=== PATIENT | female | born 1950 | race Caucasian/White ===

== ENCOUNTER 2022-11-11 09:49 | Outpatient (OUT) | payer MEDICARE, SELFPAY ==
[2022-11-11 10:24] LABS: Basophils Percent Auto 0.5 % (0.2-2.0); Eosinophils Absolute Auto 0.1 10^3/uL (0.0-0.7); Eosinophils Percent Auto 1.8 % (0.9-7.0); Hematocrit 40.7 % (36.0-48.0); Immature Granulocytes Abs Auto 0.05 10^3/uL (0.00-0.03); Immature Granulocytes Pct Auto 0.6 % (0.0-0.5); Lymphocytes Absolute Auto 2.3 10^3/uL (1.2-3.8); Lymphocytes Percent Auto 29.5 % (20.5-60.0); Mean Corpuscular HGB Conc 31.9 g/dL (29.9-35.2); Mean Corpuscular Hemoglobin 29.4 pg (26.7-34.0); Mean Corpuscular Volume 92.1 fL (81.0-99.0); Mean Platelet Volume 10.4 fL (9.5-13.5); Monocytes Percent Auto 12.5 % (1.7-12.0); Neutrophils Absolute Auto 4.3 10^3/uL (1.4-6.5); Neutrophils Percent Auto 55.1 % (43.0-75.0); Platelet Count 223 10^3/uL (150-450); Red Blood Count 4.42 10^6/uL (4.20-5.40); Red Cell Distribution Width 13.5 % (11.0-15.0); White Blood Count 7.8 10^3/uL (4.0-11.0)
[2022-11-11 11:49] LABS: Estimated Average Glucose 114 mg/dL; Glycohemoglobin A1C 5.6 % (4.5-6.2)
[2022-11-11 13:51] LABS: Free T4 1.02 ng/dL (0.76-1.46)
[2022-11-11 15:50] LABS: Alanine Aminotransferase 100 U/L (14-59); Albumin Globulin Ratio 0.6; Albumin Level 3.4 g/dL (3.4-5.0); Alkaline Phosphatase 85 U/L (46-116); Aspartate Amino Transferase 62 U/L (15-37); BUN Creatinine Ratio 19.5; Bilirubin Direct 0.1 mg/dL (0.0-0.2); Bilirubin Total 0.4 mg/dL (0.2-1.0); Carbon Dioxide 27.8 mmol/L (21.0-32.0); Chloride 104 mmol/L (98-107); Chol HDL Ratio 3.1; Cholesterol 195 mg/dL (<=200); Estimated GFR (African America >60 (>=60); Estimated GFR (Non-African Ame >60 (>=60); Free T3 2.61 pg/mL (2.18-3.98); Globulin 6.1 g/dL; Glucose 96 mg/dL (74-106); HDL Cholesterol 63 mg/dL (40-60); Potassium 3.8 mmol/L (3.5-5.1); Sodium 139 mmol/L (136-145); Thyroid Stimulating Hormone 1.633 uIU/mL (0.358-3.740); Total Protein 9.5 g/dL (6.4-8.2); Triglycerides 77 mg/dL (<=150); VLDL CHOLESTEROL 15.4 mg/dL
[2022-11-11 16:09] LABS: LDL Cholesterol Calculated 116.6 mg/dL
== END 2022-11-11 09:50 | disposition home or self-care (01) ==
LOC: LAB 09:52
PROVIDERS: PCP Family Medicine; Visit Provider Family Medicine
DX: E78.5 Hyperlipidemia, unspecified (principal); I10 Essential (primary) hypertension; E03.9 Hypothyroidism, unspecified; R73.03 Prediabetes; Z51.81 Encounter for therapeutic drug level monitoring
CPT/HCPCS: 36415; 80048; 80061; 80076; 83036; 84439; 84443; 84481; 85025

== ENCOUNTER 2022-11-14 10:48 | Outpatient (OUT) | payer MEDICARE, SELFPAY ==
[2022-11-15 08:12] LABS: HBsAg Screen Negative (Negative); HCV Ab Non Reactive (Non Reactive); Hep A Ab, IgM Negative (Negative); Hep B Core Ab, IgM Negative (Negative)
== END 2022-11-14 10:49 | disposition home or self-care (01) ==
LOC: LAB 10:51
PROVIDERS: PCP Family Medicine; Visit Provider Family Medicine
DX: R74.8 Abnormal levels of other serum enzymes (principal); R79.89 Other specified abnormal findings of blood chemistry
CPT/HCPCS: 36415; 80074

== ENCOUNTER 2022-11-17 10:28 | Outpatient (OUT) | payer MEDICARE, SELFPAY ==
--- NOTE | 2022-11-17 10:32 | US_ITS ---
The [address] [address] Patient Name: RADHA SUTHERLAND MRN: [id number] date: 1950 Sex: F Assigned Patient Location: [place] Current Patient Location: [place] Accession/Order Number: [id number] Exam Date: 11/17/2022 10:33 Report Date: 11/17/2022 11:30 At the request of: FRITZ GARCIA Procedure: US right upper quadrant EXAM: US right upper quadrant HISTORY: . Abnormal Liver Function Test . COMPARISON: None. TECHNIQUE: Grayscale and color imaging was performed FINDINGS: The pancreas was obscured due to overlying bowel gas. Scanning of the liver demonstrates mild increased echogenicity of liver consistent with fatty infiltration of the liver. Color-flow is noted in the portal and hepatic veins. Scanning of the gallbladder demonstrates multiple small echogenic foci layering within the gallbladder consistent with small gallstones. Sludge is also noted within the gallbladder. No pain upon scanning over the gallbladder. Gallbladder wall measured 3.7 mm. Common bile duct measures 3.5 mm. No fluid was noted in the right upper quadrant. Right kidney measures 10.7 x 5.8 x 7.5 cm. Color-flow is noted. No solid renal cortical masses or hydronephrosis is noted. US/US right upper quadrant Impression: 1. Cholelithiasis along with sludge within the gallbladder. Gallbladder wall measures 3.7 mm. Patient had no pain upon scanning over the gallbladder. 2. Increased echogenicity of liver consistent with fatty infiltration of liver. 3. The pancreas was obscured due to overlying bowel gas. Electronically authenticated by: STACY FISCHER Date: 11/17/2022 11:30
== END 2022-11-17 10:29 | disposition home or self-care (01) ==
LOC: US 10:28
PROVIDERS: PCP Family Medicine; Visit Provider Family Medicine
DX: R79.89 Other specified abnormal findings of blood chemistry (principal); K80.20 Calculus of gallbladder without cholecystitis without obstruction
CPT/HCPCS: 76705

== ENCOUNTER 2023-08-05 08:23 | Outpatient (OUT) | payer MEDICARE, SELFPAY ==
--- NOTE | 2023-08-05 08:26 | MM_ITS ---
Patient Name: RADHA SUTHERLAND MR#: [id number] : 1950 Exam Date: 08/05/2023 Ordering Doctor: DR Cruz Thornton . RADIOLOGY REPORT PROCEDURE: MM TOMOSYNTHESIS SCREENING BI COMPARISON: MG MAMM SCREEN LEONARDO W CAD, 11/09/2019. MG MAMM LEONARDO SCRN W CAD DIG, 07/12/2014. MG MAMM LEONARDO SCRN W CAD DIG, 12/30/2012. INDICATIONS: Screening Calculator Name NCI Breast Cancer Risk Assessment Tool 5 Year Breast Cancer Risk 1.60% Lifetime Breast Cancer Risk 4.10% Personal Breast Cancer No Personal Ovarian Cancer No Treatments Excision Family Cancers None LOCATION: The [facility] BREAST COMPOSITION: The breasts are almost entirely fatty. FINDINGS: DIAGNOSTIC CATEGORY 1--NEGATIVE. RIGHT BREAST: No significant suspicious finding. No significant change has occurred. LEFT BREAST: No significant suspicious finding. No significant change has occurred. RECOMMENDATIONS: ROUTINE MAMMOGRAM AND CLINICAL EVALUATION IN 12 MONTHS. PLEASE NOTE: A NORMAL MAMMOGRAM DOES NOT EXCLUDE THE POSSIBILITY OF BREAST CANCER. A CLINICALLY SUSPICIOUS PALPABLE LUMP SHOULD BE BIOPSIED. Dictated by: Bony Garvin M.D. on 08/06/2023 at 09:06 Approved by: Bony Garvin M.D. on 08/06/2023 at 09:09
== END 2023-08-05 08:24 | disposition home or self-care (01) ==
LOC: MAMMO 08:23
PROVIDERS: PCP Family Medicine; Visit Provider Family Medicine
DX: Z12.31 Encounter for screening mammogram for malignant neoplasm of breast (principal)
CPT/HCPCS: 77063; 77067

== ENCOUNTER 2023-12-29 10:42 | Outpatient (OUT) | payer MEDICARE, SELFPAY ==
--- OUTSIDE RECORDS SUMMARY | 2023-12-29 11:02 | XMS_ITS | CCD ---
Author Organization [facility] Inform ion Partnership [facility] Care Team Providers Care Operations Mgr Name Role Phone DR CRUZ GARCIA Attending Unavailable RADHA, DR CRUZ Torres Admitting Unavailable RADHA, DR CRUZ Torres Primary Care Unavailable RADHA, DR CRUZ Torres Consulting Unavailable MOLLY MOORE Admitting Unavailable MOLLY MOORE Attending Unavailable RADHA, DR CRUZ Torres Primary Care Unavailable Mi Littlejohn Unavailable Cruz Garcia MD Primary Care Provider Cruz Garcia MD Unavailable CRUZ GARCIA Attending Unavailable RADHA, CRUZ Attending Unavailable DAWOOD FINN Attending Unavailable CRUZ GARCIA Referring Unavailable CRUZ GARCIA Attending Unavailable RADHA, CRUZ Attending Unavailable Medications Current Medications Medication Drug Class(es) Dates Sig (Normalized) Sig (Original) cyclobenzaprine hydrochloride 10 mg oral tablet (3 sources) Muscle Relaxant End: 12-25-2023 take 1 tablet by mouth three times daily as needed for muscle spasms cyclobenzaprine (Flexeril) 10 MG tablet Take 1 tablet by mouth 3 (three) times a day as needed for muscle spasms. 12/25/2023 Discontinued hydroCHLOROthiazide 25 mg / lisinopril 20 mg oral tablet (4 sources) Thiazide Diuretic, Angiotensin Converting Enzyme Inhibitor Start: 07-02-2023 End: 07-01-2024 take 2 tablets by mouth once daily lisinopril-hydroCHL OROthiazide 20-25 MG tablet Indications: Benign essential hypertension (CMS/HCC) Take 2 tablets by mouth Daily 60 tablet 11 07/02/2023 07/01/2024 Active Lisinopril-hydro CHLOROthiazide 20-25 MG 1 tablet Orally Active levothyroxine sodium 0.05 mg oral tablet (4 sources) l-Thyroxine Start: 10-14-2023 take 1 tablet by mouth in the morning levothyroxine (Synthroid, Levoxyl) 50 MCG tablet Indications: Primary hypothyroidism (CMS/HCC) Take 1 tablet (50 mcg) by mouth in the morning. Take on an empty stomach.. 30 tablet 2 10/14/2023 Active Levothyroxine So dium 25 MCG (Prior Auth: Rx Ref#:[id number]) Oral for 90 Days Active nystatin 790604 unt/ml oral suspension (1 source) Polyene Antifungal Start: 01-28-2023 take 5 mL by mouth three times daily Nystatin [id number] UNIT/ML 5 ml Mouth/Throat 3 times a day for 10 days Swish and swallow Jan, Active Completed/Discontinued Medications Medication Drug Class(es) Dates Sig (Normalized) Sig (Original) dextromethorphan hydrobromide 1.5 mg/ml / pyrilamine maleate 1.5 mg/ml oral solution (1 source) Uncompetitive T-apoqji-F-aspartate Receptor Antagonist, Sigma-1 Agonist Start: 02-14-2018 [place] DM 7.5-7.5 MG/5ML 20 ml Orally every 6 to 8 hours prn cough for 3 days Jan, Not-Taking/PRN Ketorolac (1 source) Nonsteroidal Anti-inflammatory Drug, Cyclooxygenase Inhibitor Start: 07-01-2015 Toradol per 15 mg June, 60 mg triamcinolone acetonide 0.055 mg/actuat metered dose nasal spray (1 source) Corticosteroid Start: 02-14-2018 take 2 puff(s) nasal route once daily as needed Nasacort Allergy 24HR 55 MCG/ACT 2 puffs each nostril Nasally Once a day for 10 days Jan, Not-Taking/PRN Problems Active Problems Problem Classification Problem Date Documented Date Episodic/Chronic Diabetes mellitus without complication (5 sources) Prediabetes; Translations: [Prediabetes] Onset: 01-19-2023 12-25-2023 Episodic Disorders of lipid metabolism (6 sources) Hyperlipidemia, unspecified; Translations: [Dyslipidemia] Onset: 11-02-2021 12-25-2023 Chronic Essential hypertension (9 sources) Essential (primary) hypertension; Translations: [Benign essential hypertension] Onset: 10-28-2021 Chronic Mycoses (1 source) Candidal stomatitis Episodic Other aftercare (1 source) Other intermediate (current) drug therapy; Translations: [OTH PRIMARY EDUCATION PROFESSOR CURRENT DRUG THERAPY] Onset: 11-02-2021 Episodic Other aftercare (4 sources) Long-term current use of drug therapy; Translations: [Other automatic dry starch operator (current) drug therapy] Onset: 12-25-2023 12-25-2023 Episodic Other liver diseases (3 sources) Non-alcoholic fatty liver; Translations: [Fatty (change of) liver, not elsewhere classified] Onset: 01-19-2023 01-19-2023 Chronic Other nutritional; endocrine; and metabolic disorders (1 source) Obesity, unspecified; Translations: [OBESITY UNSPECIFIED] Onset: 11-02-2021 Chronic Other nutritional; endocrine; and metabolic disorders (4 sources) Obesity caused by energy imbalance; Translations: [Class 1 obesity due to excess calories with serious comorbidity and body mass index (BMI) of 30.0 to 30.9 in adult] Onset: 01-19-2023 12-25-2023 Chronic Other nutritional; endocrine; and metabolic disorders (1 source) Body mass index 30+ - obesity; Translations: [Obesity, unspecified] Onset: 01-19-2023 01-19-2023 Chronic Other screening for suspected conditions (not mental disorders or infectious disease) (2 sources) Patient encounter status; Translations: [Encounter for screening for malignant neoplasm of colon] 12-25-2023 Episodic Other upper respiratory disease (1 source) Nasal congestion Episodic Spondylosis; intervertebral disc disorders; other back problems (3 sources) Degeneration of lumbar intervertebral disc; Translations: [DDD (degenerative disc disease), lumbar] Onset: 01-16-2023 01-16-2023 Chronic Thyroid disorders (6 sources) Hypothyroidism, unspecified; Translations: [Unspecified acquired hypothyroidism] Onset: 11-02-2021 12-25-2023 Chronic Past or Other Problems Problem Classification Problem Date Documented Date Episodic/Chronic Biliary tract disease (3 sources) Biliary calculus; Translations: [Calculus of gallbladder without cholecystitis without obstruction] Onset: 01-19-2023 01-19-2023 Episodic Mood disorders (2 sources) Mood disorders Onset: 12-25-2023 12-25-2023 Results Test Name Value Interpretation Reference Range Facil ity CBC AUTO DIFFon 10-28-2021 BASO # 0.1 103/ul Normal 0.0-0.1 [facility] Comment on above: Performed By: #### C BC #### [facility] [address] [place] [address] Dr. Fanta Barrera Basophils/100 WBC (Bld) 0.8 % Normal 0.2-2.0 [facility] Comment on above: Performed By: #### C BC #### [facility] [address] [place] [address] Dr. Fanta Barrera EO # 0.1 103/ul Normal 0.0-0.7 [facility] Comment on above: Performed By: #### C BC #### [facility] [address] [place] [address] Dr. Fanta Barrera Eosinophils/100 WBC (Bld) 1.5 % Normal 0.9-7.0 [facility] Comment on above: Performed By: #### C BC #### [facility] [address] [place] [address] Dr. Fanta Barrera Erythrocyte distribution width (RBC) [Ratio] 13.2 % Normal 11.0-15.0 [facility] Comment on above: Performed By: #### C BC #### [facility] [address] [place] [address] Dr. Fanta Barrera Hematocrit (Bld) [Volume fraction] 40.1 % Normal 36.0-48.0 [facility] Comment on above: Performed By: #### C BC #### [facility] [address] [place] [address] Dr. Fanta Barrera Hemoglobin (Bld) [Mass/Vol] 12.8 g/dL Normal 12.0-16.0 [facility] Comment on above: Performed By: #### C BC #### [facility] [address] [place] [address] Dr. Fanta Barrera IG # 0.03 10e3/ul Normal 0.00-0.03 [facility] Comment on above: Performed By: #### C BC #### [facility] [address] [place] [address] Dr. Fanta Barrera IG % 0.5 % Normal 0.0-0.5 [facility] Comment on above: Performed By: #### C BC #### [facility] [address] [place] [address] Dr. Fanta Barrera LYMPH # 1.7 103/ul Normal 1.2-3.8 [facility] Comment on above: Performed By: #### C BC #### [facility] [address] [place] [address] Dr. Fanta Barrera Lymphocytes/100 WBC (Bld) 26.1 % Normal 20.5-60.0 [facility] Comment on above: Performed By: #### C BC #### [facility] [address] [place] [address] Dr. Fanta Barrera MANUAL DIFF REQ NO Normal [facility] Comment on above: Performed By: #### C BC #### [facility] [address] [place] [address] Dr. Fanta Barrera MCH (RBC) [Entitic mass] 29.3 pg Normal 26.7-34.0 [facility] Comment on above: Performed By: #### C BC #### [facility] [address] [place] [address] Dr. Fanta Barrera MCHC (RBC) [Mass/Vol] 31.9 g/dL Normal 29.9-35.2 [facility] Comment on above: Performed By: #### C BC #### [facility] [address] [place] [address] Dr. Fanta Barrera MCV (RBC) [Entitic vol] 91.8 fL Normal 81.0-99.0 [facility] Comment on above: Performed By: #### C BC #### [facility] [address] [place] [address] Dr. Fanta Barrera MONO # 0.8 103/ul Normal 0.3-0.8 [facility] Comment on above: Performed By: #### C BC #### [facility] [address] [place] [address] Dr. Fanta Barrera Monocytes/100 WBC (Bld) 12.5 % Critically high 1.7-12.0 [facility] Comment on above: Performed By: #### C BC #### [facility] [address] [place] [address] Dr. Fanta Barrera NEUT # 3.8 103/ul Normal 1.4-6.5 [facility] Comment on above: Performed By: #### C BC #### [facility] [address] [place] [address] Dr. Fanta Barrera Neutrophils/100 WBC (Bld) 58.6 % Normal 43.0-75.0 [facility] Comment on above: Performed By: #### C BC #### [facility] [address] [place] [address] Dr. Fanta Barrera Platelet mean volume (Bld) [Entitic vol] 11.3 fL Normal 9.5-13.5 [facility] Comment on above: Performed By: #### C BC #### [facility] [address] [place] [address] Dr. Fanta Barrera PLT 240 103/ul Normal 150-450 [facility] Comment on above: Performed By: #### C BC #### [facility] [address] [place] [address] Dr. Fanta Barrera RBC 4.37 106/ul Normal 4.20-5.40 [facility] Comment on above: Performed By: #### C BC #### [facility] [address] [place] [address] Dr. Fanta Barrera WBC 6.6 103/ul Normal 4.0-11.0 [facility] Comment on above: Performed By: #### C BC #### [facility] [address] [place] [address] Dr. Fanta Barrera FREE T3on 10-28-2021 FREE T3 2.45 pg/mlL Normal 2.18-3.98 [facility] Comment on above: Performed By: #### F T3, BMP, LIVER, TSH, LIPID #### [facility] [address] [place] [address] Dr. Fanta Barrera FREE T4on 10-28-2021 Free T4 [Mass/Vol] 1.05 ng/dL Normal 0.76-1.46 [facility] Comment on above: Performed By: #### F T4 #### [facility] [address] [address] [address] Fanta Barrera GLYCOHEMOGLOBIN A1Con 2021 ADA RECOMMENDATION SEE BELOW Normal [facility] Comment on above: Result Comment: ADA RECOMMENDED LIMIT 4.0 - 6.0 ADA THERAPEUTIC TARGET < 7.0 ACTION SUGGESTED > 7.0 Performed By: #### A 1C #### [facility] [address] [address] [address] Fanta Barrera Glucose [Mass/Vol] 123 mg/dL Normal [facility] Comment on above: Performed By: #### A 1C #### [facility] [address] [address] [address] Fanta Barrera HbA1c (Bld) [Mass fraction] 5.9 % Normal 4.5-6.2 [facility] Comment on above: Performed By: #### A 1C #### [facility] [address] [address] [address] Fanta Barrera LIPID PROFILEon 10-28-2021 CHOL-HDL RATIO NORM SEE BELOW Normal [facility] Comment on above: Result Comment: 3.3 - 4.4 LOW RISK 4.4 - 7.1 AVERAGE RISK 7.1 - 11.0 MODERATE RISK >11.0 HIGH RISK Performed By: #### F T3, BMP, LIVER, TSH, LIPID #### [facility] [address] [address] [address] Fanta Barrera Cholesterol [Mass/Vol] 180 mg/dL Normal <=200 [facility] Comment on above: Performed By: #### F T3, BMP, LIVER, TSH, LIPID #### [facility] [address] [address] [address] Fanta Barrera Cholesterol in HDL [Mass/Vol] 58 mg/dL Normal 40-60 [facility] Comment on above: Performed By: #### F T3, BMP, LIVER, TSH, LIPID #### [facility] [address] [address] [address] Fanta Barrera Cholesterol in LDL [Mass/Vol] 106.6 mg/dL Normal [facility] Comment on above: Performed By: #### F T3, BMP, LIVER, TSH, LIPID #### [facility] [address] [address] [address] Fanta Barrera Cholesterol.total/Cho lesterol in HDL [Mass ratio] 3.1 {ratio} Normal [facility] Comment on above: Performed By: #### F T3, BMP, LIVER, TSH, LIPID #### [facility] [address] [address] [address] Fanta Barrera HDL NORMAL > or = 60 mg/dl - LOW CARDIOVASCULAR RISK <40 mg/dl - HIGH CARDIOVASCULAR RISK Normal [facility] Comment on above: Performed By: #### F T3, BMP, LIVER, TSH, LIPID #### [facility] [address] [address] [address] Fanta Barrera LDL CALC NORMAL SEE BELOW Normal [facility] Comment on above: Result Comment: <100 mg/dl OPTIMAL 100 - 129 mg/dl NEAR OR ABOVE OPTIMAL 130 - 159 mg/dl BORDERLINE HIGH 160 - 189 mg/dl HIGH >190 mg/dl VERY HIGH Performed By: #### F T3, BMP, LIVER, TSH, LIPID #### [facility] [address] [address] [address] Fanta Barrera Triglyceride [Mass/Vol] 77 mg/dL Normal <=150 [facility] Comment on above: Performed By: #### F T3, BMP, LIVER, TSH, LIPID #### [facility] [address] [address] [address] Fanta Barrera VLDL CALC 15.4 mg/dL Normal [facility] Comment on above: Performed By: #### F T3, BMP, LIVER, TSH, LIPID #### [facility] [address] [address] [address] Fanta Barrera LIVER PROFILEon 10-28-2021 Albumin [Mass/Vol] 3.7 g/dL Normal 3.4-5.0 [facility] Comment on above: Performed By: #### F T3, BMP, LIVER, TSH, LIPID #### [facility] [address] [address] [address] Fanta Barrera Albumin/Globulin [Mass ratio] 0.7 {ratio} Normal [facility] Comment on above: Performed By: #### F T3, BMP, LIVER, TSH, LIPID #### [facility] [address] [address] [address] Fanta Barrera ALP [Catalytic activity/Vol] 79 U/L Normal 46-116 [facility] Comment on above: Performed By: #### F T3, BMP, LIVER, TSH, LIPID #### [facility] [address] [address] [address] Fanta Barrera ALT [Catalytic activity/Vol] 74 U/L Critically high 14-59 [facility] Comment on above: Performed By: #### F T3, BMP, LIVER, TSH, LIPID #### [facility] [address] [place] [address] Dr. Fanta Barrera AST [Catalytic activity/Vol] 45 U/L Critically high 15-37 The [facility] Comment on above: Performed By: #### F T3, BMP, LIVER, TSH, LIPID #### [facility] [address] [place] [address] Dr. Fanta Barrera BILI, CONJUGATED 0.1 mg/dL Normal 0.0-0.2 [facility] Comment on above: Performed By: #### F T3, BMP, LIVER, TSH, LIPID #### [facility] [address] [place] [address] Dr. Fanta Barrera Bilirubin [Mass/Vol] 0.5 mg/dL Normal 0.2-1.0 [facility] Comment on above: Performed By: #### F T3, BMP, LIVER, TSH, LIPID #### [facility] [address] [place] [address] Dr. Fanta Barrera Globulin (S) [Mass/Vol] 5.3 g/dL Normal [facility] Comment on above: Performed By: #### F T3, BMP, LIVER, TSH, LIPID #### [facility] [address] [place] [address] Dr. Fanta Barrera Protein [Mass/Vol] 9.0 g/dL Critically high 6.4-8.2 [facility] Comment on above: Performed By: #### F T3, BMP, LIVER, TSH, LIPID #### [facility] [address] [place] [address] Dr. Fanta Barrera PROF CHEM 8 (BAS METB)on Anion gap [Moles/Vol] 10.0 mmol/L Normal [facility] Comment on above: Performed By: #### F T3, BMP, LIVER, TSH, LIPID #### [facility] [address] [place] [address] Dr. Fanta Barrera Calcium [Mass/Vol] 9.4 mg/dL Normal 8.5-10.1 [facility] Comment on above: Performed By: #### F T3, BMP, LIVER, TSH, LIPID #### [facility] [address] [place] [address] Dr. Fanta Barrera Chloride [Moles/Vol] 104 mmol/L Normal 98-107 [facility] Comment on above: Performed By: #### F T3, BMP, LIVER, TSH, LIPID #### [facility] [address] [place] [address] Dr. Fanta Barrera CO2 [Moles/Vol] 28.6 mmol/L Normal 21.0-32.0 [facility] Comment on above: Performed By: #### F T3, BMP, LIVER, TSH, LIPID #### [facility] [address] [place] [address] Dr. Fanta Barrera Creatinine [Mass/Vol] 0.72 mg/dL Normal 0.55-1.02 [facility] Comment on above: Performed By: #### F T3, BMP, LIVER, TSH, LIPID #### [facility] [address] [place] [address] Dr. Fanta Barrera EGFR-AF GERMAN >60 Normal >=60 [facility] Comment on above: Performed By: #### F T3, BMP, LIVER, TSH, LIPID #### [facility] [address] [place] [address] Dr. Fanta Barrera EGFR-NON AF GERMAN >60 Normal >=60 [facility] Comment on above: Performed By: #### F T3, BMP, LIVER, TSH, LIPID #### [facility] [address] [address] [address] Fanta Barrera Glucose [Mass/Vol] 104 mg/dL Normal 74-106 [facility] Comment on above: Performed By: #### F T3, BMP, LIVER, TSH, LIPID #### [facility] [address] [address] [address] Fanta Barrera Potassium [Moles/Vol] 3.6 mmol/L Normal 3.5-5.1 [facility] Comment on above: Performed By: #### F T3, BMP, LIVER, TSH, LIPID #### [facility] [address] [place] [address] Dr. Fanta Barrera Sodium [Moles/Vol] 139 mmol/L Normal 136-145 [facility] Comment on above: Performed By: #### F T3, BMP, LIVER, TSH, LIPID #### [facility] [address] [place] [address] Dr. Fanta Barrera Urea nitrogen [Mass/Vol] 15.0 mg/dL Normal 7.0-18.0 [facility] Comment on above: Performed By: #### F T3, BMP, LIVER, TSH, LIPID #### [facility] [address] [place] [address] Dr. Fanta Barrera Urea nitrogen/Creatinine [Mass ratio] 20.8 mg/mg Normal [facility] Comment on above: Performed By: #### F T3, BMP, LIVER, TSH, LIPID #### [facility] [address] [place] [address] Dr. Fanta Barrera TSHon 10-28-2021 TSH 1.041 uIU/mL Normal 0.358-3.740 [facility] Comment on above: Performed By: #### F T3, BMP, LIVER, TSH, LIPID #### [facility] [address] [place] [address] Dr. Fanta Barrera Vital Signs Date Time Vital Sign Value Performing Clinician Facility 12-25-2023 10:32-0500 Body height 166.4 cm Cruz Garcia MD Work Phone: [facility] 12-25-2023 10:32-0500 Body mass index (BMI) [Ratio] 30.81 kg/m2 Cruz Garcia MD Work Phone: [facility] 12-25-2023 10:32-0500 Body temperature 97 [degF] Cruz Garcia MD Work Phone: [facility] 12-25-2023 10:32-0500 Body weight 85.28 kg Cruz Garcia MD Work Phone: [facility] 12-25-2023 10:32-0500 Diastolic blood pressure 78 mm[Hg] Cruz Garcia MD Work Phone: [facility] 12-25-2023 10:32-0500 Heart rate 101 /min Cruz Garcia MD Work Phone: [facility] 12-25-2023 10:32-0500 Respiratory rate 20 /min Cruz Garcia MD Work Phone: [facility] 12-25-2023 10:32-0500 SaO2% (BldA) [Mass fraction] 97 % Cruz Garcia MD Work Phone: [facility] 12-25-2023 10:32-0500 Systolic blood pressure 162 mm[Hg] Cruz Garcia MD Work Phone: [facility] 01-28-2023 12:20-0500 Body height 165.1 cm Mi Littlejohn Other [facility] Other 01-28-2023 12:20-0500 Body mass index (BMI) [Ratio] 31.41 kg/m2 Mi Littlejohn Other [facility] Other 01-28-2023 12:20-0500 Body temperature 97.2 [degF] Mi Littlejohn Other [facility] Other 01-28-2023 12:20-0500 Body weight 85.64 kg Mi Littlejohn Other [facility] Other 01-28-2023 12:20-0500 Diastolic blood pressure 74 mm[Hg] Mi Littlejohn Other [facility] Other 01-28-2023 12:20-0500 Respiratory rate 18 /min Mi Littlejohn Other [facility] Other 01-28-2023 12:20-0500 SaO2% (BldA) [Mass fraction] 97 % Mi Littlejohn Other [facility] Other 01-28-2023 12:20-0500 Systolic blood pressure 145 mm[Hg] Mi Littlejohn Other [facility] Other Encounters Encounter Date Encounter Type Care Provider Facility Start: 12-25-2023 End: 12-25-2023 Bamboo flowsdawson Garcia MD Work Phone: [facility] Start: 12-25-2023 End: 12-25-2023 Bamboo flowsheet Cruz Garcia MD Work Phone: [facility] Start: 12-25-2023 End: 12-25-2023 Patient encounter procedure Cruz Garcia MD Work Phone: [facility] Work Phone: Start: 12-25-2023 End: 12-25-2023 Postop follow up visit related to original px Cruz Garcia MD Work Phone: [facility] Comment on above: Medicare annual well ness visit, subsequent (Primary Dx); Primary hypothyroidism (CMS/HCC); Pre-diabetes; Class 1 obesity due to excess calories with serious comorbidity and body mass index (BMI) of 30.0 to 30.9 in adult; Benign essential hypertension (CMS/HCC); Encounter for long-term (current) use of medications; Dyslipidemia (CMS/HCC); Colon cancer screening Start: 12-25-2023 End: 12-25-2023 ambulatory CRUZ GARCIA Not Available Start: 10-22-2023 End: 10-22-2023 ambulatory CRUZ GARCIA Not Available Start: 08-05-2023 End: 08-05-2023 ambulatory DAWOOD FINN Not Available Start: 07-20-2023 End: 07-20-2023 ambulatory CRUZ GARCIA Not Available Start: 02-18-2023 End: 02-18-2023 ambulatory CRUZ GARCIA Not Available Start: 02-04-2023 End: 02-04-2023 ambulatory CRUZ GARCIA Not Available Start: 01-28-2023 End: 01-28-2023 ambulatory Mi Littlejohn Other [facility] Other Start: 01-28-2023 Office outpatient ne w 10 minutes Mi Littlejohn [facility] Start: 01-19-2023 End: 01-19-2023 ambulatory CRUZ GARCIA Not Available Start: 10-28-2021 End: 10-29-[address] CRUZ GARCIA Facility:[facility]1 Start: 01-16-2021 ambulatory MOLLY MOORE Facilit y:H1 Procedures Date Procedure Procedure Detail Performing Clinician Start: 08-06-2023 Mammography Cruz garrido MD Work Phone: Plan of Treatment Date Care Activity Detail Author Start: 08-05-2024 Screening for malign ant neoplasm of breast Mammogram [facility] Start: 06-23-2024 End: 06-23-2024 Patient encounter procedure 06/23/2024 9:30 AM EDT Office Visit [facility] [address] [place] [phone] Cruz Garcia MD [address] [place] [phone] [facility] Start: 12-25-2023 End: 12-24-2024 Basic metabolic 1998 panel - Serum or Plasma Basic metabolic panel Lab Routine Benign essential hypertension (CMS/HCC) Expected: 12/25/2023 (Approximate), Expires: 12/24/2024 [facility] Comment on above: Expected: 12/25/2023 (Approximate), Expires: 12/24/2024 Start: 12-25-2023 End: 12-24-2024 CBC W Auto Differential panel - Blood CBC and differential Lab Routine Encounter for long-term (current) use of medications Expected: 12/25/2023 (Approximate), Expires: 12/24/2024 [facility] Comment on above: Expected: 12/25/2023 (Approximate), Expires: 12/24/2024 Start: 12-25-2023 End: 12-24-2024 Hemoglobin A1c/Hemoglobin.total in Blood Hemoglobin A1c Lab Routine Pre-diabetes Expected: 12/25/2023 (Approximate), Expires: 12/24/2024 [facility] Work Phone: Comment on above: Expected: 12/25/2023 (Approximate), Expires: 12/24/2024 Start: 12-25-2023 End: 12-24-2024 Hepatic function 2000 panel - Serum or Plasma Hepatic function panel Lab Routine Encounter for long-term (current) use of medications Expected: 12/25/2023 (Approximate), Expires: 12/24/2024 [facility] Comment on above: Expected: 12/25/2023 (Approximate), Expires: 12/24/2024 Start: 12-25-2023 End: 12-24-2024 Lipid 1996 panel - Serum or Plasma Lipid panel Lab Routine Dyslipidemia (CMS/HCC) Expected: 12/25/2023 (Approximate), Expires: 12/24/2024 [facility] Comment on above: Expected: 12/25/2023 (Approximate), Expires: 12/24/2024 Start: 12-25-2023 End: 12-24-2024 Noninvasive colorectal cancer DNA and occult blood screening [Presence] in Stool Cologuard colon cancer screening Lab Routine Colon cancer screening Expected: 12/25/2023 (Approximate), Expires: 12/24/2024 [facility] Comment on above: Expected: 12/25/2023 (Approximate), Expires: 12/24/2024 Start: 12-25-2023 End: 12-24-2024 Thyrotropin [Units/volume] in Serum or Plasma TSH Lab Routine Primary hypothyroidism ([facility]/HCC) Expected: 12/25/2023 (Approximate), Expires: 12/24/2024 [facility] Comment on above: Expected: 12/25/2023 (Approximate), Expires: 12/24/2024 Start: 12-25-2023 End: 12-24-2024 Thyroxine (T4) free [Mass/volume] in Serum or Plasma T4, free Lab Routine Primary hypothyroidism ([facility]/HCC) Expected: 12/25/2023 (Approximate), Expires: 12/24/2024 [facility] Comment on above: Expected: 12/25/2023 (Approximate), Expires: 12/24/2024 Start: 12-25-2023 End: 12-25-2023 Patient encounter procedure 12/25/2023 10:30 AM EST Office Visit [facility] [address] [place] [phone] Cruz Garcia MD [address] [place] [phone] [facility] Comment on above: Arrived Start: 12-24-2023 Screening for malign ant neoplasm of colon [facility] Start: 10-18-2023 Influenza vaccination Influenza Vacc ine (#1) [facility] Start: 06-24-2016 Pneumococcal Vaccine : 65+ Years (1 of 1 - PCV) Pneumococcal Vaccine: 65+ Years (1 of 1 - PCV) [facility] Start: 1950 Medicare Annual Wellness (AWV) Medicare Annual Wellness (AWV) [facility] Start: 1950 Screening for malign ant neoplasm of colon [facility] Immunizations Immunization Date Immunization Notes Care Provider Fa cility 11-28-2023 influenza virus vacc ine, unspecified formulation Cruz Garcia MD Work Phone: [facility] 12-05-2022 Influenza, Seasonal, Quadrivalent, Adjuvanted Cruz Garcia MD Work Phone: [facility] 12-02-2021 Influenza, Seasonal, Quadrivalent, Adjuvanted Cruz Garcia MD Work Phone: [facility] 11-21-2019 Influenza, Seasonal, Quadrivalent, Adjuvanted Cruz Garcia MD Work Phone: [facility] Payers Date Payer Category Payer Medicare (Managed Care) SINDHU TRINH [id number] 1958 Unknown [id number] 1950 Unknown [id number] .[id number] 1950 Unknown [id number] .2. 1950 Unknown [id number] .2.1258 1950 Unknown [id number] .2.1258 1950 Unknown [id number] .2.1258 1950 Unknown [id number] [id number] .2.1258 1950 Unknown [id number] .2.1258 1950 Unknown [id number] [id number] .2.1259 1950 Unknown [id number] .2.1259 Social History Date Type Detail Facility Unknown if ever smoked [facility] Other Start: 10-22-2023 End: 12-25-2023 Sex Assigned At [employer] Other Start: 01-19-2023 Tobacco smoking stat [facility] Never smoked tobacco [facility] Start: 01-19-2023 Tobacco use and exposure Smokeless tobacco non-user [facility] Start: 10-22-2023 End: 12-25-2023 Alcoholic beverage intake Lifetime non-drinker (finding) [facility] Start: 10-22-2023 End: 12-25-2023 History of Social function [facility] Start: 1950 Sex assigned at Not on file [facility] History of Present illness Narrative 12-25-2023 Cruz Garcia MD - 12/25/2023 10:54 AM Heath Garcia MD - 12/25/2023 10:54 AM Heath Garcia MD - 12/25/2023 10:53 AM Heath Garcia MD - 12/25/2023 10:30 AM EST Note Date & Type Note Facility 12-25-2023 History of Presen t illness Narrative Associated Problem(s): Medicare annual wellness visit, subsequent Due for labs. Discussed proper diet and regular aerobic exercise. Need aerobic exercise 5-6 days a week for 30 minutes at a time. Smaller portions and limit total calories. Colonoscopy 10 years ago and willing to have cologuard. Tetanus every 10 years. Advised not to smoke. Discussed daily Aspirin therapy. Associated Problem(s): Class 1 obesity due to excess calories with serious comorbidity and body mass index (BMI) of 30.0 to 30.9 in adult Discussed proper diet and regular aerobic exercise. Recommend Weight Watchers and need to limit calories and smaller portions. Need to increase activity and regular aerobic exercise several days a week for 30 minutes at a time. Associated Problem(s): Benign essential hypertension (CMS/HCC) BP elevated today but reports normal at home and monitor PRN. Discussed DASH diet. Subjective Patient ID: Mi Harvey is a 73 y.o. female who presents for Medicare Annual Wellness Visit Subsequent (Wellness/). Presents for medicare annual wellness visit. Patient feels well today. Weight down 15 pounds in the past year. Not very active around house and no regular exercise. Tries to watch diet and eat healthy. Increased fruits and vegetables. Smaller portions and limits snacking. Tries to limit total daily calories. Due for labs. Over 10 years since colonoscopy and wants to try cologuard. Checking BP PRN and typically controlled. BP elevated today. Taking medication daily and tolerating without side effects. Review of Systems Respiratory: Negative for cough, shortness of breath and wheezing. Cardiovascular: Negative for chest pain and palpitations. Gastrointestinal: Negative for abdominal pain, diarrhea, nausea and vomiting. Genitourinary: Negative for dysuria. Objective Physical Exam Constitutional: General: She is not in acute distress. Appearance: Normal appearance. HENT: Head: Normocephalic. Right Ear: Tympanic membrane normal. Left Ear: Tympanic membrane normal. Eyes: Extraocular Movements: Extraocular movements intact. Pupils: Pupils are equal, round, and reactive to light. Cardiovascular: Rate and Rhythm: Normal rate and regular rhythm. Heart sounds: No murmur heard. No friction rub. No gallop. Pulmonary: Effort: Pulmonary effort is normal. Breath sounds: Normal breath sounds. No wheezing, rhonchi or rales. Abdominal: General: Bowel sounds are normal. There is no distension. Palpations: Abdomen is soft. Tenderness: There is no abdominal tenderness. There is no guarding or rebound. Musculoskeletal: General: No swelling or tenderness. Cervical back: Neck supple. Right lower leg: No edema. Left lower leg: No edema. Skin: Findings: No erythema or rash. Neurological: General: No focal deficit present. Mental Status: She is alert and oriented to person, place, and time. Cranial Nerves: No cranial nerve deficit. Motor: No weakness. Gait: Gait normal. Assessment/Plan Problem List Items Addressed This Visit Dyslipidemia (CMS/HCC) Relevant Orders Lipid panel Primary hypothyroidism (CMS/HCC) Relevant Orders TSH T4, free Pre-diabetes Relevant Orders Hemoglobin A1c Benign essential hypertension (CMS/HCC) BP elevated today but reports normal at home and monitor PRN. Discussed DASH diet. Relevant Orders Basic metabolic panel Class 1 obesity due to excess calories with serious comorbidity and body mass index (BMI) of 30.0 to 30.9 in adult Discussed proper diet and regular aerobic exercise. Recommend Weight Watchers and need to limit calories and smaller portions. Need to increase activity and regular aerobic exercise several days a week for 30 minutes at a time. Medicare annual wellness visit, subsequent - Primary Due for labs. Discussed proper diet and regular aerobic exercise. Need aerobic exercise 5-6 days a week for 30 minutes at a time. Smaller portions and limit total calories. Colonoscopy 10 years ago and willing to have cologuard. Tetanus every 10 years. Advised not to smoke. Discussed daily Aspirin therapy. Encounter for long-term (current) use of medications Relevant Orders CBC and differential Hepatic function panel Other Visit Diagnoses Colon cancer screening Relevant Orders Cologuard colon cancer screening documented in this encounter [facility] Evaluation note 01-28-2023 Note Date & Type Note Facility 01-28-2023 Evaluation note Encounter Date Diagnosis Assessment Notes Jan, Thrush (ICD-10 - B37.0) Drink plenty fluids, get plenty of rest. Use the nystatin swish and swallow as prescribed. Run a coolmist humidifier to bedside. Consider using nasal saline rinses 2-3 times a day. Follow-up with your family physician if no improvement in 1 to 2 weeks Jan, Nasal congestion (ICD-10 - R09.81) [facility] Other Evaluation note Note Date & Type Note Facility Evaluation note Diagnosis Benign essential hypertension (CMS/HCC)- Primary Essential hypertension, benign DDD (degenerative disc disease), lumbar Degeneration of lumbar or lumbosacral intervertebral disc Nonalcoholic fatty liver Obesity (BMI 30-39.9) Benign essential hypertension (CMS/HCC)- Primary Essential hypertension, benign DDD (degenerative disc disease), lumbar Degeneration of lumbar or lumbosacral intervertebral disc Primary hypothyroidism (CMS/HCC) Unspecified hypothyroidism Breast cancer screening by mammogram Benign essential hypertension (CMS/HCC)- Primary Essential hypertension, benign DDD (degenerative disc disease), lumbar Degeneration of lumbar or lumbosacral intervertebral disc Medicare annual wellness visit, subsequent- Primary Primary hypothyroidism (CMS/HCC) Unspecified hypothyroidism Pre-diabetes Other abnormal glucose Class 1 obesity due to excess calories with serious comorbidity and body mass index (BMI) of 30.0 to 30.9 in adult Benign essential hypertension (CMS/HCC) Essential hypertension, benign Encounter for long-term (current) use of medications Encounter for long-term (current) use of other medications Dyslipidemia (CMS/HCC) Other and unspecified hyperlipidemia Colon cancer screening Special screening for malignant neoplasms, colon documented in this encounter [facility] History general Narrative - Reported Note Date & Type Note Facility History general Narrative - Reported Type Medical History HTN (hypertension) Surgical History melanoma excision Surgical History colonoscopy Surgical History wisdom teeth Surgical History tubal ligation Hospitalization History see above [facility] Other Summary Purpose Family History No Family History Records FoundNo Family History Records Found Advance Directives No Advanced Directives Records FoundNo Advanced Directives Records Found Additional Source Comments INFORMATION SOURCE (unrecogn ized section and content) DATE CREATED AUTHOR 11/16/2021 [facility] DATE CREATED AUTHOR AUTHOR'S ORGANIZ ATION 12/27/2023 [facility] d[facility] Specialists EPIC REASON FOR VISIT (unrecogniz ed section and content) Reason Comments Medicare Annual Wellness Visit Subsequen t Wellness Care Teams (unrecognized sec tion and content) Operations Mgr Relationship Specialty Start Date End Date Cruz Garcia MD [address] [place] [address] PCP - General Family Medicine 07/20/23 Cruz Garcia MD [address] [place] [phone] PCP - Sindhu ARAUZ 11/17/23 Operations Mgr Relationship Specialty Start Date End Date Cruz Garcia MD [address] [place] [address] PCP - General Family Medicine 07/20/23 Cruz Garcia MD [address] [place] [phone] PCP - Sindhu ARAUZ 11/17/23 FOR RECORDS PERTAINING TO PATIENTS WHO ARE OR HAVE BEEN ENROLLED IN A CHEMICAL DEPENDENCY/SUBSTANCEABUSE PROGRAM, SOME INFORMATION MAY BE OMITTED. This clinical summary was aggregated from multiple sources. Caution should be exercised in using it in the provision of clinical care. This summary normalizes information from multiple sources, and as a consequence, information in this document may materially change the coding, format and clinical context of patient data. In addition, data may be omitted in some cases. CLINICAL DECISIONS SHOULD BE BASED ON THE PRIMARY CLINICAL RECORDS. [email or web address] provides no warranty or guarantee of the accuracy or completeness of information in this document.
[2023-12-29 11:07] LABS: Basophils Absolute Auto 0.1 10^3/uL (0.0-0.1); Basophils Percent Auto 0.8 % (0.2-2.0); Eosinophils Absolute Auto 0.2 10^3/uL (0.0-0.7); Eosinophils Percent Auto 2.2 % (0.9-7.0); Hematocrit 40.2 % (36.0-48.0); Hemoglobin 12.8 g/dL (12.0-16.0); Immature Granulocytes Abs Auto 0.03 10^3/uL (0.00-0.03); Immature Granulocytes Pct Auto 0.4 % (0.0-0.5); Lymphocytes Absolute Auto 2.1 10^3/uL (1.2-3.8); Lymphocytes Percent Auto 28.6 % (20.5-60.0); Mean Corpuscular HGB Conc 31.8 g/dL (29.9-35.2); Mean Corpuscular Hemoglobin 28.6 pg (26.7-34.0); Mean Corpuscular Volume 89.9 fL (81.0-99.0); Mean Platelet Volume 10.5 fL (9.5-13.5); Neutrophils Absolute Auto 4.1 10^3/uL (1.4-6.5); Platelet Count 250 10^3/uL (150-450); Red Blood Count 4.47 10^6/uL (4.20-5.40); Red Cell Distribution Width 12.9 % (11.0-15.0); White Blood Count 7.4 10^3/uL (4.0-11.0)
[2023-12-29 11:43] LABS: Estimated Average Glucose 120 mg/dL; Glycohemoglobin A1C 5.8 % (4.5-6.2)
[2023-12-29 11:58] LABS: Alanine Aminotransferase 31 U/L (14-59); Albumin Globulin Ratio 0.6; Albumin Level 3.5 g/dL (3.4-5.0); Alkaline Phosphatase 92 U/L (46-116); Anion Gap 13.9; Aspartate Amino Transferase 22 U/L (15-37); BUN Creatinine Ratio 18.1; Bilirubin Direct 0.1 mg/dL (0.0-0.2); Bilirubin Total 0.4 mg/dL (0.2-1.0); Calcium 9.1 mg/dL (8.5-10.1); Carbon Dioxide 26.6 mmol/L (21.0-32.0); Chloride 106 mmol/L (98-107); Chol HDL Ratio 3.3; Cholesterol 188 mg/dL (<=200); Estimated GFR (African America >60 (>=60 mL/min/1.73m^2); Estimated GFR (Non-African Ame 59 (>=60 mL/min/1.73m^2); Globulin 5.7 g/dL; Glucose 106 mg/dL (74-106); HDL Cholesterol 57 mg/dL (40-60); LDL Cholesterol Calculated 112.4 mg/dL; Potassium 3.5 mmol/L (3.5-5.1); Sodium 143 mmol/L (136-145); Thyroid Stimulating Hormone 1.434 uIU/mL (0.358-3.740); Total Protein 9.2 g/dL (6.4-8.2); Triglycerides 93 mg/dL (<=150); VLDL CHOLESTEROL 18.6 mg/dL
[2023-12-29 12:35] LABS: Free T4 0.97 ng/dL (0.76-1.46)
== END 2023-12-29 10:43 | disposition home or self-care (01) ==
LOC: LAB 10:42
PROVIDERS: PCP Family Medicine; Visit Provider Family Medicine
DX: R73.03 Prediabetes (principal); I10 Essential (primary) hypertension; Z79.899 Other long term (current) drug therapy; E78.5 Hyperlipidemia, unspecified; E03.9 Hypothyroidism, unspecified
CPT/HCPCS: 36415; 80048; 80061; 80076; 83036; 84439; 84443; 85025

== ENCOUNTER 2024-11-03 11:10 | Emergency (ER) | payer MEDICARE, SELFPAY ==
[2024-11-03] VITALS (15 sets, daily range): BP systolic 158–206; BP diastolic 80–100; PULSE 63–100; TEMP 36.7; O2SAT 95–98; BMI 30.8
--- NOTE | 2024-11-03 11:25 | ECG_ITS ---
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 Measurements Intervals [place] Rate: 96 P: 69 WV: 172 QRS: 43 QRSD: 92 T: 106 QT: 366 QTc: 420 Interpretive Statements 1100 Sinus rhythm [address] depression [address] & [place] abnormality 9150 abnormal ECG No previous ECG available for comparison Electronically Signed On 11-03-2024 18:15:30 EDT by ADENIKE RANDHAWA M.D.
--- NOTE | 2024-11-03 11:26 | ED.GENADUL1 ---
HPI HPI - General Adult General Chief complaint: Chest Pain Stated complaint: CHEST PAIN Time Seen by Provider: 11/03/24 11:12 Source: patient Mode of arrival: walk-in History of Present Illness HPI narrative: 74-year-old female presented to the emergency department for chest pain. She states for 4 days more or less she has had continuous pain in her left shoulder and the left axilla. She thought it might be heartburn but it did not go away so she came in here. She does not have substernal pressure. No injury or fever or cough or complaints of shortness of breath. Related Data Home Medications ?Medication ?Instructions ?Recorded ?Confirmed levothyroxine 50 mcg tablet 50 mcg PO QAM 11/03/24 11/03/24 lisinopril 20 2 tab PO DAILY 11/03/24 11/03/24 mg-hydrochlorothiazide 25 mg tablet Previous Rx's ?Medication ?Instructions ?Recorded esomeprazole magnesium 20 mg 20 mg PO DAILY #20 caps 11/03/24 capsule,delayed release (Nexium) Allergies Allergy/AdvReac Type Severity Reaction Status Date / Time No Known Drug Allergies Allergy Verified 11/03/24 11:19 Review of Systems ROS Narrative A ten point review of systems is negative except as noted above. [facility] Medical History (Updated 11/03/24 @ 13:06 by Maxime Parr MD) Hypothyroid ?E03.9 - Hypothyroidism, unspecified (ICD-10) HTN (hypertension) ?I10 - Essential (primary) hypertension (ICD-10) Heart murmur ?R01.1 - Cardiac murmur, unspecified (ICD-10) Social History Little interest or pleasure in doing things: not at all Feeling down, depressed, or hopeless: not at all Exam Narrative Exam Narrative: Nurses note and vital signs reviewed and patient is not hypoxic. General: The patient appears well and in no apparent distress. Patient is resting comfortably on cart. Skin: Warm, dry, no pallor noted. There is no rash noted. Head: Normocephalic, atraumatic Eye: Normal conjunctiva, no drainage Ears, Nose, Mouth, and Throat: oral mucosa is moist. Nares patent. Cardiovascular: Regular Rate and Rhythm Respiratory: Patient is in no distress, no accessory muscle use, lungs are clear to auscultation, no wheezing, rales or rhonchi Back: non-tender GI: Soft and nontender Musculoskeletal: The patient has no evidence of calf tenderness, no pitting edema, symmetrical pulses noted bilaterally Neurological: A&O, normal speech Psychiatric: Cooperative Constitutional Vital Signs, click to edit/add: Last Vital Signs Temp 98.1 F 11/03/24 11:13 Pulse 73 11/03/24 12:10 Resp 15 11/03/24 12:10 BP 174/80 H 11/03/24 12:14 Pulse Ox 96 11/03/24 12:10 O2 Del Method Room Air 11/03/24 11:24 Course Vital Signs Vital signs: Vital Signs Temperature 98.1 F 11/03/24 11:13 Pulse Rate 100 H 11/03/24 11:13 Respiratory Rate 18 11/03/24 11:13 Blood Pressure 158/88 H 11/03/24 11:13 Pulse Oximetry 97 11/03/24 11:13 Oxygen Delivery Method Room Air 11/03/24 11:13 Temperature 98.1 F 11/03/24 11:13 Pulse Rate 73 11/03/24 12:10 Respiratory Rate 15 11/03/24 12:10 Blood Pressure 174/80 H 11/03/24 12:14 Pulse Oximetry 96 11/03/24 12:10 Oxygen Delivery Method Room Air 11/03/24 11:24 Medical Decision Making MDM Narrative Medical decision making narrative: Her workup including troponin is negative. She was given a GI cocktail with near complete resolution of her symptoms. She has been having the symptoms essentially continuously for 4 days and at this point I do not suspect cardiac etiology. D-dimer also normal. No evidence of PE. Treatment diagnosis and follow-up were discussed with the patient and she will follow-up with her family doctor in a few days. Differential Diagnosis Differential Diagnosis: STEMI, NSTEMI, PE, pneumothorax, pneumonia Lab Data Lab results reviewed: Yes I reviewed the patient's lab results Labs: Lab Results 11/03/24 11/03/24 Range/Units 11:32 11:49 WBC 6.8 (4.0-11.0) 10^3/uL RBC 4.35 (4.20-5.40) 10^6/uL Hgb 12.8 (12.0-16.0) g/dL Hct 37.6 (36.0-48.0) % MCV 86.4 (81.0-99.0) fL MCH 29.4 (26.7-34.0) pg MCHC 34.0 (29.9-35.2) g/dL RDW 13.2 (11.0-15.0) % Plt Count 209 (150-450) 10^3/uL MPV 10.3 (9.5-13.5) fL Neut % (Auto) 62.7 (43.0-75.0) % Lymph % (Auto) 20.8 (20.5-60.0) % [place] % (Auto) 13.9 H (1.7-12.0) % Eos % (Auto) 1.5 (0.9-7.0) % Baso % (Auto) 0.7 (0.2-2.0) % Neut # (Auto) 4.3 (1.4-6.5) 10^3/uL Lymph # (Auto) 1.4 (1.2-3.8) 10^3/uL [place] # (Auto) 0.9 H (0.3-0.8) 10^3/uL Eos # (Auto) 0.1 (0.0-0.7) 10^3/uL Baso # (Auto) 0.1 (0.0-0.1) 10^3/uL Abs Immat Gran (auto) 0.03 (0.00-0.03) 10^3/uL Imm/Tot Granulo (auto) 0.4 (0.0-0.5) % D-Dimer 0.28 (<=0.59) mg/L FEU Sodium 140 (136-145) mmol/L Potassium 3.2 L (3.5-5.1) mmol/L Chloride 102 (98-107) mmol/L Carbon Dioxide 24.6 (21.0-32.0) mmol/L Anion Gap 16.6 BUN 14.0 (7.0-18.0) mg/dL Creatinine 0.69 (0.55-1.02) mg/dL Est GFR ( Amer) >60 (>=60 mL/min/1.73m^2) Est GFR (Non-Af Amer) >60 (>=60 mL/min/1.73m^2) BUN/Creatinine Ratio 20.3 Glucose 106 (74-106) mg/dL Calcium 9.5 (8.5-10.1) mg/dL Troponin I High Sens 6.6 (4.0-51.3) pg/mL Imaging Data Chest x-ray: Radiologist's impression: ITS Impressions Chest X-Ray 11/03/24 11:40 IMPRESSION: NO ACUTE FINDINGS Impression dictated by: Renetta Nguyen M.D. 11/03/2024 12:35 PM Dictation Location: [employer] Electronically authenticated by: [id number] Y Date: 11/03/2024 12:35 ECG Data Attestation: I personally reviewed and interpreted this ECG as follows: (EKG on my interpretation shows sinus rhythm without any ST elevation.) Discharge Plan Discharge Chief Complaint: Chest Pain Clinical Impression: Chest pain Patient Disposition: Home, Self-Care Time of Disposition Decision: 13:05 Condition: Good Mode of Transportation: Private Vehicle Prescriptions / Home Meds: New esomeprazole magnesium [Nexium] 20 mg capsule,delayed release(DR/EC) 20 mg PO DAILY Qty: 20 0RF No Action levothyroxine 50 mcg tablet 50 mcg PO QAM lisinopril-hydrochlorothiazide 20-25 mg tablet 2 tab PO DAILY Print Language: Romanian Instructions: Chest Pain (ED) Referrals: Cruz Thornton MD [Primary Care Provider, Family Practice] - 1 week
--- OUTSIDE RECORDS SUMMARY | 2024-11-03 11:30 | XMS_ITS | CCD ---
Author Organization [facility] Inform ion Partnership [facility] Care Team Providers Care Control Supervisor Name Role Phone DR CRUZ GARCIA Attending Unavailable RADHA, DR CRUZ Torres Admitting Unavailable RADHA, DR CRUZ Torres Primary Care Unavailable RADHA, DR CRUZ Torres Consulting Unavailable MOLLY MOORE Admitting Unavailable MOLLY MOORE Attending Unavailable RADHA, DR CRUZ Torres Primary Care Unavailable Mi Littlejohn Unavailable Cruz Garcia MD Primary Care Provider [phone] Cruz Garcia MD Unavailable CRUZ GARCIA Attending Unavailable RADHA, CRUZ Attending Unavailable DAWOOD FINN Attending Unavailable CRUZ GARCIA Referring Unavailable CRUZ GARCIA Attending Unavailable RADHA, CRUZ Attending Unavailable RADHA, CRUZ Attending Unavailable Medications Current Medications Medication Drug Class(es) Dates Sig (Normalized) Sig (Original) [id number] 200 actuat albuterol 0.09 mg/actuat metered dose inhaler (5 sources) beta2-Adrenergic Agonist Start: 5 End: 5 take 2 puff(s) by inhalation every four hours for wheezing albuterol HFA 90 mcg/act inhaler Indications: Acute bronchitis due to other specified organisms Inhale 2 puffs every 4 (four) hours if needed for shortness of breath or wheezing 8 g 2 02/23/2024 06/23/2024 Discontinued azithromycin 250 mg oral tablet (5 sources) Macrolide Antimicrobial Start: 5 End: 5 take 2 tablets by mouth once daily azithromycin (Zithromax) 250 MG tablet Indications: Acute bronchitis due to other specified organisms 2 PO once a day on day #1, then 1 PO daily on days 2-5 6 tablet 02/23/2024 06/23/2024 Discontinued cyclobenzaprine hydrochloride 10 mg oral tablet (6 sources) Muscle Relaxant End: take 1 tablet by mouth three times daily as needed for muscle spasms cyclobenzaprine (Flexeril) 10 MG tablet Take 1 tablet by mouth 3 (three) times a day as needed for muscle spasms. 12/25/2023 Discontinued hydroCHLOROthiazide 25 mg / lisinopril 20 mg oral tablet (16 sources) Thiazide Diuretic, Angiotensin Converting Enzyme Inhibitor Start: 4 End: take 2 tablets by mouth once daily lisinopril-hydroCHL OROthiazide 20-25 MG tablet Indications: Benign essential hypertension (CMS/HCC) Take 2 tablets by mouth Daily 180 tablet 3 06/23/2024 06/23/2025 Active Lisinopril-hydro CHLOROthiazide 20-25 MG 1 tablet Orally Active levothyroxine sodium 0.05 mg oral tablet (16 sources) l-Thyroxine Start: 06-23-2024 take 1 tablet by mouth before mealtime levothyroxine (Synthroid, Levoxyl) 50 MCG tablet Indications: Primary hypothyroidism (CMS/HCC) Take 1 tablet (50 mcg) by mouth in the morning. Take before meals. 90 tablet 3 06/23/2024 Active Start: 06-23-2024 take 1 tablet by joel th before mealtime levothyroxine (Synthroid, Levoxyl) 50 MCG tablet Indications: Primary hypothyroidism (CMS/HCC) Take 1 tablet (50 mcg) by mouth in the morning. Take before meals. 90 tablet 3 06/23/2024 Active Start: 04-11-2024 End: 06-23-2024 take 1 tablet by mouth before mealtime levothyroxine (Synthroid, Levoxyl) 50 MCG tablet Indications: Primary hypothyroidism (CMS/HCC) Take 1 tablet (50 mcg) by mouth in the morning. Take before meals. 30 tablet 2 04/11/2024 06/23/2024 Discontinued (Reorder) Start: 10-14-2023 End: 12-30-2023 take 1 tablet by mouth in the morning levothyroxine (Synthroid, Levoxyl) 50 MCG tablet Indications: Primary hypothyroidism (CMS/HCC) TAKE 1 TABLET BY MOUTH IN THE MORNING ON AN EMPTY STOMACH 30 tablet 2 12/30/2023 Active Levothyroxine So dium 25 MCG (Prior Auth: Rx Ref#:[id number]) Oral for 90 Days Active nystatin [id number] unt/ml oral suspension (1 source) Polyene Antifungal Start: 01-28-2023 take 5 mL by mouth three times daily Nystatin [id number] UNIT/ML 5 ml Mouth/Throat 3 times a day for 10 days Swish and swallow Jan, Active predniSONE 50 mg oral tablet (2 sources) Start: 02-23-2024 End: 02-29-2024 take 1 tablet by mouth once daily predniSONE (Deltasone) 50 MG tablet Indications: Acute bronchitis due to other specified organisms Take 1 tablet (50 mg) by mouth Daily for 6 days 6 tablet 02/23/2024 02/29/2024 Active Completed/Discontinued Medications Medication Drug Class(es) Dates Sig (Normalized) Sig (Original) dextromethorphan hydrobromide 1.5 mg/ml / pyrilamine maleate 1.5 mg/ml oral solution (1 source) Uncompetitive I-zrfubq-O-aspartate Receptor Antagonist, Sigma-1 Agonist Start: 02-14-2018 [place] DM 7.5-7.5 MG/5ML 20 ml Orally every [...] Problem Classification Problem Date Documented Date Episodic/Chronic Disorders of lipid metabolism (16 sources) Hyperlipidemia, unspecified; Translations: [Dyslipidemia] Onset: 11-02-2021 12-25-2023 Chronic Essential hypertension (20 sources) Essential (primary) hypertension; Translations: [Benign essential hypertension] Onset: 10-28-2021 Chronic Mycoses (1 source) Candidal stomatitis Episodic Other aftercare (1 source) Other senior living (current) drug therapy; Translations: [OTH X RAY DEVELOPER CURRENT DRUG THERAPY] Onset: 11-02-2021 Episodic Other liver diseases (10 sources) Non-alcoholic fatty liver; Translations: [Fatty (change of) liver, not elsewhere classified] Onset: 01-19-2023 01-19-2023 Chronic Other liver diseases (3 sources) Non-alcoholic fatty 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-alcoholic steatohepatitis; Translations: [Fatty (change of) liver, not elsewhere classified] Onset: 01-19-2023 01-19-2023 Chronic Other nutritional; endocrine; and metabolic disorders (1 source) Obesity, unspecified; Translations: [OBESITY UNSPECIFIED] Onset: 11-02-2021 Chronic Other nutritional; endocrine; and metabolic disorders (11 sources) Obesity caused by energy imbalance; Translations: [Class 1 obesity due to excess calories with serious comorbidity and body mass index (BMI) of 30.0 to 30.9 in adult] Onset: 01-19-2023 12-25-2023 Chronic Other nutritional; endocrine; and metabolic disorders (4 sources) Body mass index 30+ - obesity; Translations: [Obesity, unspecified] Onset: 01-19-2023 01-19-2023 Chronic Other screening for suspected conditions (not mental disorders or infectious disease) (2 sources) Patient encounter status; Translations: [Encounter for screening for malignant neoplasm of colon] 12-25-2023 Episodic Other upper respiratory disease (1 source) Nasal congestion Episodic Spondylosis; intervertebral disc disorders; other back problems (17 sources) Degeneration of lumbar intervertebral disc; Translations: [DDD (degenerative disc disease), lumbar] Onset: 01-16-2023 01-16-2023 Chronic Thyroid disorders (18 sources) Hypothyroidism, unspecified; Translations: [Unspecified acquired hypothyroidism] Onset: 11-02-2021 12-25-2023 Chronic Past or Other Problems Problem Classification Problem Date Documented Date Episodic/Chronic Acute bronchitis (7 sources) Acute infective bronchitis; Translations: [Acute bronchitis due to other specified organisms] Onset: 02-23-2024 Resolved: 06-23-2024 02-23-2024 Episodic Biliary tract disease (13 sources) Biliary calculus; Translations: [Calculus of gallbladder without cholecystitis without obstruction] Onset: 01-19-2023 01-19-2023 Episodic Diabetes mellitus without complication (15 sources) Prediabetes; Translations: [Prediabetes] Onset: 01-19-2023 12-25-2023 Episodic Mood disorders (9 sources) Mood disorders Onset: 12-25-2023 12-25-2023 Other aftercare (11 sources) Long-term current use of drug therapy; Translations: [Other extermination inspector (current) drug therapy] Onset: 12-25-2023 12-25-2023 Episodic Results Test Name Value Interpretation Reference Range Facility ALL BASIC METABOLIC PANELon 12-29-2023 Anion gap [Moles/Vol] 13.9 mmol/L NO [facility] Calcium [Mass/Vol] 9.1 mg/dL 8.5 - 10. 1 mg/dL [facility] Chloride [Moles/Vol] 106 mmol/L 98 - 10 7 mmol/L [facility] CO2 [Moles/Vol] 26.6 mmol/L 21.0 - 32.0 mmol/L [facility] Creatinine [Mass/Vol] 0.94 mg/dL 0.55 - 1.02 mg/dL [facility] GFR/1.73 sq M.predicted CKD-EPI (S/P/Bld) [Vol rate/Area] >60 >=60 mL/min/1.73m 2 [facility] Glucose [Mass/Vol] 106 mg/dL 74 - 106 mg/dL NO [facility] Potassium [Moles/Vol] 3.5 mmol/L 3.5 - 5.1 mmol/L [facility] Sodium [Moles/Vol] 143 mmol/L 136 - 145 mmol/L [facility] TBH EGFR-NON AF SURINAMESE 59 Low >=60 mL/min/1.73m 2 [facility] Urea nitrogen [Mass/Vol] 17 mg/dL 7.0 - 18.0 mg/dL [facility] Urea nitrogen/Creatinine [Mass ratio] 18.1 mg/mg [facility] ALL CBC WITH AUTO DIFFon BASOPHILS ABSOLUTE AUTO 0.1 [facility] Basophils/100 WBC (Bld) 0.8 % 0.2 - 2.0 % [facility] Eosinophils/100 WBC (Bld) 2.2 % 0.9 - 7.0 % [facility] Erythrocyte distribution width (RBC) [Ratio] 12.9 % 11.0 - 15.0 % [facility] Hematocrit (Bld) [Volume fraction] 40.2 % 36.0 - 48.0 % [facility] Hemoglobin (Bld) [Mass/Vol] 12.8 g/dL 12.0 - 16.0 g/dL [facility] IMMATURE GRANULOCYTES ABS AUTO 0.03 [facility] Immature granulocytes/100 WBC (Bld) 0.4 % 0.0 - 0.5 % [facility] Interpretation and review of laboratory results Abnormal [facility] LYMPHOCYTES ABSOLUTE AUTO 2.1 [facility] Lymphocytes/100 WBC (Bld) 28.6 % 20.5 - 60.0 % [facility] MCH (RBC) [Entitic mass] 28.6 pg 26.7 - 34.0 pg [facility] MCHC (RBC) [Mass/Vol] 31.8 g/dL 29.9 - 35.2 g/dL [facility] MCV (RBC) [Entitic vol] 89.9 fL 81.0 - 99.0 fL [facility] MONOCYTES ABSOLUTE AUTO 1 High [facility] Monocytes/100 WBC (Bld) 13 % High 1.7 - 12.0 % [facility] NEUTROPHILS ABSOLUTE AUTO 4.1 [facility] Neutrophils/100 WBC (Bld) 55 % 43.0 - 75.0 % [facility] Platelet mean volume (Bld) [Entitic vol] 10.5 fL 9.5 - 13.5 fL [facility] are TBH EO # 0.2 [facility] TB PLT 250 [facility] TB RBC 4.47 [facility] WBC 7.4 [facility] ALL LIPID PROFILE (FASTING)o n 12-29-2023 CHOL HDL RATIO 3.3 [facility] Comment on above: 3.3 - 4.4 LOW RISK 4.4 - 7.1 AVERAGE RISK 7.1 - 11.0 MODERATE RISK >11.0 HIGH RISK Cholesterol [Mass/Vol] 188 mg/dL NINF - 200 mg/dL [facility] Cholesterol in HDL [Mass/Vol] 57 mg/dL 40 - 60 mg/dL [facility] Comment on above: > or =60 mg/dl - LOW CARDIOVASCULAR RISK <40 mg/dl - HIGH CARDIOVASCULAR RISK Magnesium [Mass/Vol] 112.4 mg/dL [facility] Comment on above: <100 mg/dl OPTIMAL 100-129 mg/dl NEAR OR ABOVE OPTIMAL 130-159 mg/dl BORDERLINE HIGH 160-189 mg/dl HIGH >190 mg/dl VERY HIGH Magnesium [Mass/Vol] 18.6 mg/dL [facility] Triglyceride [Mass/Vol] 93 mg/dL NINF - 150 mg/dL [facility] ALL THYROID STIM HORMONEon 02-27-2023 TSH Qn 1.434 m[IU]/L [facility] ALL THYROXINE (T4) FREEon Free T4 [Mass/Vol] 0.97 ng/dL 0.76 - 1. 46 ng/dL [facility] LIVER PANELon Albumin [Mass/Vol] 3.5 g/dL 3.4 - 5.0 g/dL [facility] ALBUMIN GLOBULIN RATIO 0.6 [facility] ALP [Catalytic activity/Vol] 92 U/L 46 - 116 U/L [facility] ALT [Catalytic activity/Vol] 31 U/L 14 - 59 U/L [facility] AST [Catalytic activity/Vol] 22 U/L 15 - 37 U/L [facility] Bilirubin [Mass/Vol] 0.4 mg/dL 0.2 - 1 .0 mg/dL [facility] Bilirubin.indirect [Mass/Vol] 0.1 mg/dL 0.0 - 0.2 mg/dL [facility] Globulin (S) [Mass/Vol] 5.7 g/dL [facility] Protein [Mass/Vol] 9.2 g/dL High 6.4 - 8.2 g/dL NO [facility] MLR HEMOGLOBIN A1Con 024 Glucose [Mass/Vol] 120 mg/dL [facility] HbA1c (Bld) [Mass fraction] 5.8 % 4.5 - 6.2 % [facility] Comment on above: ADA RECOMMENDED LIMI T 4.0 - 6.0 ADA THERAPEUTIC TARGET < 7.0 ACTION SUGGESTED > 7.0 [facility] No Panel Informationon 12-28 Interpretation and review of laboratory results Abnormal [facility] CBC AUTO DIFFon 10-28-2021 BASO # 0.1 103/ul Normal 0.0-0.1 [facility] Comment on above: Performed By: #### C BC #### [facility] [address] [place] [address] Dr. Fanta Barrera Basophils/100 WBC (Bld) 0.8 % Normal 0.2-2.0 [facility] Comment on above: Performed By: #### C BC #### [facility] [address] [place] [address] Dr. Fanta Barrera EO # 0.1 103/ul Normal 0.0-0.7 [facility] Comment on above: Performed By: #### C BC #### [facility] [address] [place] [address] Dr. Fanta Barrera Eosinophils/100 WBC (Bld) 1.5 % Normal 0.9-7.0 [facility] Comment on above: Performed By: #### C BC #### [facility] [address] [place] [address] Dr. Fanta Barrera Erythrocyte distribution width (RBC) [Ratio] 13.2 % Normal 11.0-15.0 [facility] Comment on above: Performed By: #### C BC #### [facility] [address] [place] [address] Dr. Fanta Barrera Hematocrit (Bld) [Volume fraction] 40.1 % Normal 36.0-48.0 [facility] Comment on above: Performed By: #### C BC #### [facility] [address] [place] [address] Dr. Fanta Barrera Hemoglobin (Bld) [Mass/Vol] 12.8 g/dL Normal 12.0-16.0 [facility] Comment on above: Performed By: #### C BC #### [facility] [address] [place] [address] Dr. Fanta Barrera IG # 0.03 10e3/ul Normal 0.00-0.03 [facility] Comment on above: Performed By: #### C BC #### [facility] [address] [place] [address] Dr. Fanta Barrera IG % 0.5 % Normal 0.0-0.5 [facility] Comment on above: Performed By: #### C BC #### [facility] [address] [address] [address] Fanta Barrera LYMPH # 1.7 103/ul Normal 1.2-3.8 [facility] Comment on above: Performed By: #### C BC #### [facility] [address] [address] [address] Fanta Barrera Lymphocytes/100 WBC (Bld) 26.1 % Normal 20.5-60.0 [facility] Comment on above: Performed By: #### C BC #### [facility] [address] [address] [address] Fanta Barrera MANUAL DIFF REQ NO Normal [facility] Comment on above: Performed By: #### C BC #### [facility] [address] [place] [address] Dr. Fanta Barrera MCH (RBC) [Entitic mass] 29.3 pg Normal 26.7-34.0 [facility] Comment on above: Performed By: #### C BC #### [facility] [address] [place] [address] Dr. Fanta Barrera MCHC (RBC) [Mass/Vol] 31.9 g/dL Normal 29.9-35.2 [facility] Comment on above: Performed By: #### C BC #### [facility] [address] [place] [address] Dr. Fanta Barrera MCV (RBC) [Entitic vol] 91.8 fL Normal 81.0-99.0 [facility] Comment on above: Performed By: #### C BC #### [facility] [address] [place] [address] Dr. Fanta Barrera MONO # 0.8 103/ul Normal 0.3-0.8 [facility] Comment on above: Performed By: #### C BC #### [facility] [address] [place] [address] Dr. Fanta Barrera Monocytes/100 WBC (Bld) 12.5 % Critically high 1.7-12.0 [facility] Comment on above: Performed By: #### C BC #### [facility] [address] [place] [address] Dr. Fanta Barrera NEUT # 3.8 103/ul Normal 1.4-6.5 [facility] Comment on above: Performed By: #### C BC #### [facility] [address] [place] [address] Dr. Fanta Barrera Neutrophils/100 WBC (Bld) 58.6 % Normal 43.0-75.0 [facility] Comment on above: Performed By: #### C BC #### [facility] [address] [place] [address] Dr. Fanta Barrera Platelet mean volume (Bld) [Entitic vol] 11.3 fL Normal 9.5-13.5 [facility] Comment on above: Performed By: #### C BC #### [facility] [address] [place] [address] Dr. Fanta Barrera PLT 240 103/ul Normal 150-450 [facility] Comment on above: Performed By: #### C BC #### [facility] [address] [place] [address] Dr. Fanta Barrera RBC 4.37 106/ul Normal 4.20-5.40 [facility] Comment on above: Performed By: #### C BC #### [facility] [address] [place] [address] Dr. Fanta Barrera WBC 6.6 103/ul Normal 4.0-11.0 [facility] Comment on above: Performed By: #### C BC #### [facility] [address] [place] [address] Dr. Fanta Barrera FREE T3on 10-28-2021 FREE T3 2.45 pg/mlL Normal 2.18-3.98 [facility] Comment on above: Performed By: #### F T3, BMP, LIVER, TSH, LIPID #### [facility] [address] [place] [address] Dr. Fanta Barrera FREE T4on 10-28-2021 Free T4 [Mass/Vol] 1.05 ng/dL Normal 0.76-1.46 [facility] Comment on above: Performed By: #### F T4 #### [facility] [address] [address] [address] Fanta Barrera GLYCOHEMOGLOBIN A1Con 2021 ADA RECOMMENDATION SEE BELOW Normal [facility] Comment on above: Result Comment: ADA RECOMMENDED LIMIT 4.0 - 6.0 ADA THERAPEUTIC TARGET < 7.0 ACTION SUGGESTED > 7.0 Performed By: #### A 1C #### [facility] [address] [address] [address] Fanta Barrera Glucose [Mass/Vol] 123 mg/dL Normal [facility] Comment on above: Performed By: #### A 1C #### [facility] [address] [address] [address] Fanta Barrera HbA1c (Bld) [Mass fraction] 5.9 % Normal 4.5-6.2 [facility] Comment on above: Performed By: #### A 1C #### [facility] [address] [place] [address] Dr. Fanta Barrera LIPID PROFILEon 10-28-2021 CHOL-HDL RATIO NORM SEE BELOW Normal [facility] Comment on above: Result Comment: 3.3 - 4.4 LOW RISK 4.4 - 7.1 AVERAGE RISK 7.1 - 11.0 MODERATE RISK >11.0 HIGH RISK Performed By: #### F T3, BMP, LIVER, TSH, LIPID #### [facility] [address] [place] [address] Dr. Fanta Barrera Cholesterol [Mass/Vol] 180 mg/dL Normal <=200 [facility] Comment on above: Performed By: #### F T3, BMP, LIVER, TSH, LIPID #### [facility] [address] [address] [address] Fanta Barrera Cholesterol in HDL [Mass/Vol] 58 mg/dL Normal 40-60 [facility] Comment on above: Performed By: #### F T3, BMP, LIVER, TSH, LIPID #### [facility] [address] [address] [address] Fanta Barrera Cholesterol in LDL [Mass/Vol] 106.6 mg/dL Normal [facility] Comment on above: Performed By: #### F T3, BMP, LIVER, TSH, LIPID #### [facility] [address] [address] [address] Fanta Barrera Cholesterol.total/Cho lesterol in HDL [Mass ratio] 3.1 {ratio} Normal [facility] Comment on above: Performed By: #### F T3, BMP, LIVER, TSH, LIPID #### [facility] [address] [address] [address] Fanta Barrera HDL NORMAL > or = 60 mg/dl - LOW CARDIOVASCULAR RISK <40 mg/dl - HIGH CARDIOVASCULAR RISK Normal [facility] Comment on above: Performed By: #### F T3, BMP, LIVER, TSH, LIPID #### [facility] [address] [address] [address] Fanta Barrera LDL CALC NORMAL SEE BELOW Normal [facility] Comment on above: Result Comment: <100 mg/dl OPTIMAL 100 - 129 mg/dl NEAR OR ABOVE OPTIMAL 130 - 159 mg/dl BORDERLINE HIGH 160 - 189 mg/dl HIGH >190 mg/dl VERY HIGH Performed By: #### F T3, BMP, LIVER, TSH, LIPID #### [facility] [address] [address] [address] Fanta Barrera Triglyceride [Mass/Vol] 77 mg/dL Normal <=150 [facility] Comment on above: Performed By: #### F T3, BMP, LIVER, TSH, LIPID #### [facility] [address] [address] [address] Fanta Barrera VLDL CALC 15.4 mg/dL Normal [facility] Comment on above: Performed By: #### F T3, BMP, LIVER, TSH, LIPID #### [facility] [address] [address] [address] Fanta Barrera LIVER PROFILEon 10-28-2021 Albumin [Mass/Vol] 3.7 g/dL Normal 3.4-5.0 [facility] Comment on above: Performed By: #### F T3, BMP, LIVER, TSH, LIPID #### [facility] [address] [address] [address] Fanta Barrera Albumin/Globulin [Mass ratio] 0.7 {ratio} Normal [facility] Comment on above: Performed By: #### F T3, BMP, LIVER, TSH, LIPID #### [facility] [address] [address] [address] Fanta Barrera ALP [Catalytic activity/Vol] 79 U/L Normal 46-116 [facility] Comment on above: Performed By: #### F T3, BMP, LIVER, TSH, LIPID #### [facility] [address] [place] [address] Dr. Fanta Barrera ALT [Catalytic activity/Vol] 74 U/L Critically high 14-59 [facility] Comment on above: Performed By: #### F T3, BMP, LIVER, TSH, LIPID #### [facility] [address] [place] [address] Dr. Fanta Barrera AST [Catalytic activity/Vol] 45 U/L Critically high 15-37 [facility] Comment on above: Performed By: #### F T3, BMP, LIVER, TSH, LIPID #### [facility] [address] [place] [address] Dr. Fanta Barrera BILI, CONJUGATED 0.1 mg/dL Normal 0.0-0.2 [facility] Comment on above: Performed By: #### F T3, BMP, LIVER, TSH, LIPID #### [facility] [address] [place] [address] Dr. Fanta Barrera Bilirubin [Mass/Vol] 0.5 mg/dL Normal 0.2-1.0 [facility] Comment on above: Performed By: #### F T3, BMP, LIVER, TSH, LIPID #### [facility] [address] [place] [address] Dr. Fanta Barrera Globulin (S) [Mass/Vol] 5.3 g/dL Normal [facility] Comment on above: Performed By: #### F T3, BMP, LIVER, TSH, LIPID #### [facility] [address] [place] [address] Dr. Fanta Barrera Protein [Mass/Vol] 9.0 g/dL Critically high 6.4-8.2 [facility] Comment on above: Performed By: #### F T3, BMP, LIVER, TSH, LIPID #### [facility] [address] [place] [address] Dr. Fanta Barrera PROF CHEM 8 (BAS METB)on Anion gap [Moles/Vol] 10.0 mmol/L Normal [facility] Comment on above: Performed By: #### F T3, BMP, LIVER, TSH, LIPID #### [facility] [address] [address] [address] Fanta Barrera Calcium [Mass/Vol] 9.4 mg/dL Normal 8.5-10.1 [facility] Comment on above: Performed By: #### F T3, BMP, LIVER, TSH, LIPID #### [facility] [address] [place] [address] Dr. Fanta Barrera Chloride [Moles/Vol] 104 mmol/L Normal 98-107 [facility] Comment on above: Performed By: #### F T3, BMP, LIVER, TSH, LIPID #### [facility] [address] [place] [address] Dr. Fanta Barrera CO2 [Moles/Vol] 28.6 mmol/L Normal 21.0-32.0 [facility] Comment on above: Performed By: #### F T3, BMP, LIVER, TSH, LIPID #### [facility] [address] [place] [address] Dr. Fanta Barrera Creatinine [Mass/Vol] 0.72 mg/dL Normal 0.55-1.02 [facility] Comment on above: Performed By: #### F T3, BMP, LIVER, TSH, LIPID #### [facility] [address] [place] [address] Dr. Fanta Barrera EGFR-AF SURINAMESE >60 Normal >=60 [facility] Comment on above: Performed By: #### F T3, BMP, LIVER, TSH, LIPID #### [facility] [address] [place] [address] Dr. Fanta Barrera EGFR-NON AF SURINAMESE >60 Normal >=60 [facility] Comment on above: Performed By: #### F T3, BMP, LIVER, TSH, LIPID #### [facility] [address] [address] [address] Fanta Barrera Glucose [Mass/Vol] 104 mg/dL Normal 74-106 [facility] Comment on above: Performed By: #### F T3, BMP, LIVER, TSH, LIPID #### [facility] [address] [address] [address] Fanta Barrera Potassium [Moles/Vol] 3.6 mmol/L Normal 3.5-5.1 [facility] Comment on above: Performed By: #### F T3, BMP, LIVER, TSH, LIPID #### [facility] [address] [address] [address] Fanta Barrera Sodium [Moles/Vol] 139 mmol/L Normal 136-145 [facility] Comment on above: Performed By: #### F T3, BMP, LIVER, TSH, LIPID #### [facility] [address] [place] [address] Dr. Fanta Barrera Urea nitrogen [Mass/Vol] 15.0 mg/dL Normal 7.0-18.0 [facility] Comment on above: Performed By: #### F T3, BMP, LIVER, TSH, LIPID #### [facility] [address] [address] [address] Fanta Barrera Urea nitrogen/Creatinine [Mass ratio] 20.8 mg/mg Normal [facility] Comment on above: Performed By: #### F T3, BMP, LIVER, TSH, LIPID #### [facility] [address] [place] [address] Dr. Fanta Barrera TSHon 10-28-2021 TSH 1.041 uIU/mL Normal 0.358-3.740 [facility] Comment on above: Performed By: #### F T3, BMP, LIVER, TSH, LIPID #### [facility] [address] [place] [address] Dr. Fanta Barrera Vital Signs Date Time Vital Sign Value Performing Clinician Facility 06-23-2024 09:34-0400 Body height 166.4 cm Cruz Garcia MD Work Phone: [facility] 06-23-2024 09:34-0400 Body mass index (BMI) [Ratio] 31.79 kg/m2 Cruz Garcia MD Work Phone: [facility] 06-23-2024 09:34-0400 Body temperature 96.4 [degF] Cruz Garcia MD Work Phone: [facility] 06-23-2024 09:34-0400 Body weight 88 kg Cruz Garcia MD Work Phone: [facility] 06-23-2024 09:34-0400 Diastolic blood pressure 86 mm[Hg] Cruz Garcia MD Work Phone: [facility] 06-23-2024 09:34-0400 Heart rate 89 /min Cruz Garcia MD Work Phone: [facility] 06-23-2024 09:34-0400 Respiratory rate 20 /min Cruz Garcia MD Work Phone: [facility] 06-23-2024 09:34-0400 SaO2% (BldA) [Mass fraction] 98 % Cruz Garcia MD Work Phone: [facility] 06-23-2024 09:34-0400 Systolic blood pressure 142 mm[Hg] Cruz Garcia MD Work Phone: [facility] 02-23-2024 09:49-0500 Body height 166.4 cm Cruz Garcia MD Work Phone: [facility] 02-23-2024 09:49-0500 Body mass index (BMI) [Ratio] 31.14 kg/m2 Cruz Garcia MD Work Phone: [facility] 02-23-2024 09:49-0500 Body temperature 95.5 [degF] Cruz Garcia MD Work Phone: [facility] 02-23-2024 09:49-0500 Body weight 86.18 kg Cruz Garcia MD Work Phone: [facility] 02-23-2024 09:49-0500 Diastolic blood pressure 84 mm[Hg] Cruz Garcia MD Work Phone: [facility] 02-23-2024 09:49-0500 Heart rate 102 /min Cruz Garcia MD Work Phone: [facility] 02-23-2024 09:49-0500 Respiratory rate 22 /min Cruz Garcia MD Work Phone: [facility] 02-23-2024 09:49-0500 SaO2% (BldA) [Mass fraction] 98 % Cruz Garcia MD Work Phone: [facility] 02-23-2024 09:49-0500 Systolic blood pressure 162 mm[Hg] Cruz Garcia MD Work Phone: [facility] 12-25-2023 10:32-0500 Body height 166.4 cm Cruz Garcia MD Work Phone: [facility] 12-25-2023 10:32-0500 Body mass index (BMI) [Ratio] 30.81 kg/m2 Cruz Garcia MD Work Phone: [facility] 12-25-2023 10:32-0500 Body temperature 97 [degF] Cruz Garcia MD Work Phone: [facility] 12-25-2023 10:32-0500 Body weight 85.28 kg Cruz Garcia MD Work Phone: [facility] 12-25-2023 10:32-0500 Diastolic blood pressure 78 mm[Hg] Cruz Garcia MD Work Phone: [facility] 12-25-2023 10:32-0500 Heart rate 101 /min Cruz Garcia MD Work Phone: [facility] 12-25-2023 10:32-0500 Respiratory rate 20 /min Cruz Garcia MD Work Phone: [facility] 12-25-2023 10:32-0500 SaO2% (BldA) [Mass fraction] 97 % Cruz Garcia MD Work Phone: [facility] 12-25-2023 10:32-0500 Systolic blood pressure 162 mm[Hg] Cruz Garcia MD Work Phone: [facility] 10-22-2023 09:52-0400 Body height 166.4 cm Cruz Garcia MD Work Phone: [facility] 10-22-2023 09:52-0400 Body mass index (BMI) [Ratio] 31.14 kg/m2 Cruz Garcia MD Work Phone: [facility] 10-22-2023 09:52-0400 Body temperature 97.5 [degF] Cruz Garcia MD Work Phone: [facility] 10-22-2023 09:52-0400 Body weight 86.18 kg Cruz Garcia MD Work Phone: [facility] 10-22-2023 09:52-0400 Diastolic blood pressure 74 mm[Hg] Cruz Garcia MD Work Phone: [facility] 10-22-2023 09:52-0400 Heart rate 86 /min Cruz Garcia MD Work Phone: [facility] 10-22-2023 09:52-0400 Respiratory rate 22 /min Cruz Garcia MD Work Phone: [facility] 10-22-2023 09:52-0400 SaO2% (BldA) [Mass fraction] 97 % Cruz Garcia MD Work Phone: [facility] 10-22-2023 09:52-0400 Systolic blood pressure 146 mm[Hg] Cruz Garcia MD Work Phone: [facility] 01-28-2023 12:20-0500 Body height 165.1 cm Mi Littlejohn Other [facility] Other 01-28-2023 12:20-0500 Body mass index (BMI) [Ratio] 31.41 kg/m2 Mi Littlejohn Other [facility] Other 01-28-2023 12:20-0500 Body temperature 97.2 [degF] Mi Littlejohn Other [facility] Other 01-28-2023 12:20-0500 Body weight 85.64 kg Mi Littlejohn Other [facility] Other 01-28-2023 12:20-0500 Diastolic blood pressure 74 mm[Hg] Mi Littlejohn Other [facility] Other 01-28-2023 12:20-0500 Respiratory rate 18 /min Mi Littlejohn Other [facility] Other 01-28-2023 12:20-0500 SaO2% (BldA) [Mass fraction] 97 % Mi Littlejohn Other [facility] Other 01-28-2023 12:20-0500 Systolic blood pressure 145 mm[Hg] Mi Littlejohn Other [facility] Other Encounters Encounter Date Encounter Type Care Provider Facility Start: 06-23-2024 End: 06-23-2024 Bamboo flowsheet Cruz Garcia MD Work Phone: [facility] Start: 06-23-2024 End: 06-23-2024 Bamboo flowsheet Cruz Garcia MD Work Phone: [facility] Start: 06-23-2024 End: 06-23-2024 ambulatory CRUZ GARCIA Not Available Start: 06-23-2024 End: 06-23-2024 Office outpatient visit 15 minutes Cruz Garcia MD Work Phone: [facility] Comment on above: Benign essential hyp ertension (CMS/HCC) (Primary Dx); Degeneration of intervertebral disc of lumbar region with discogenic back pain and lower extremity pain; Primary hypothyroidism (CMS/HCC) Start: 02-23-2024 End: 02-23-2024 Bamboo flowsheet Cruz Garcia MD Work Phone: [facility] Start: 02-23-2024 End: 02-23-2024 Bamboo flowsheet Cruz Garcia MD Work Phone: [facility] Start: 02-23-2024 End: 02-23-2024 Office outpatient visit 15 minutes Cruz Garcia MD Work Phone: [facility] Comment on above: Acute bronchitis due to other specified organisms (Primary Dx) Start: 02-23-2024 End: 02-23-2024 ambulatory CRUZ GARCIA Not Available Start: 12-29-2023 End: 12-29-2023 Clinisync Result Encounter Cruz Garcia MD Work Phone: [facility] Unsolicited Start: 12-29-2023 End: 12-29-2023 Clinisync Result Encounter Cruz Garcia MD Work Phone: [facility] Start: 12-25-2023 End: 12-25-2023 Bamboo flowsheet Cruz Garcia MD Work Phone: [facility] Start: 12-25-2023 End: 12-25-2023 Bamboo flowsheet Cruz Garcia MD Work Phone: [facility] Start: 12-25-2023 End: 12-25-2023 Patient encounter procedure Cruz Garcia MD Work Phone: [facility] Work Phone: Start: 12-25-2023 End: 12-25-2023 Postop follow up visit related to original px Cruz Garcia MD Work Phone: [facility] Comment on above: Medicare annual well [...] GARCIA Not Available Start: 10-22-2023 End: 10-22-2023 Bamboo flowsheet Cruz Garcia MD Work Phone: [facility] Start: 10-22-2023 End: 10-22-2023 Bamboo flowsheet Cruz Garcia MD Work Phone: [facility] Start: 10-22-2023 End: 10-22-2023 Office outpatient visit 15 minutes Cruz Garcia MD Work Phone: [facility] Comment on above: Benign essential hyp ertension (CMS/HCC) (Primary Dx); DDD (degenerative disc disease), lumbar Start: 10-22-2023 End: 10-22-2023 ambulatory CRUZ GARCIA Not Available Start: 08-05-2023 End: 08-05-2023 ambulatory DAWOOD FINN Not Available Start: 07-20-2023 End: 07-20-2023 ambulatory CRUZ GARCIA Not Available Start: 01-28-2023 End: 01-28-2023 ambulatory Mi Littlejohn Other [facility] Other Start: 01-28-2023 Office outpatient ne w 10 minutes Mi Littlejohn [facility] Start: 10-28-2021 End: 10-29-[address] CRUZ GARCIA Facility:[facility] Start: 01-16-2021 ambulatory MOLLYTED MOORE Facilit y:[facility]1 Procedures Date Procedure Procedure Detail Performing Clinician Start: 12-29-2023 ALL BASIC METABOLIC PANEL Cruz Garcia MD Work Phone: Start: 12-29-2023 ALL CBC WITH AUTO DIFF Cruz Garcia MD Work Phone: Start: 12-29-2023 ALL LIPID PROFILE (FASTING) Cruz Garcia MD Work Phone: Start: 12-29-2023 ALL THYROID STIM HORMONE Cruz Garcia MD Work Phone: Start: 12-29-2023 ALL THYROXINE (T4) FREE Cruz Garcia MD Work Phone: Start: 12-29-2023 HP LIVER PANEL Cruz souza MD Work Phone: Start: 12-29-2023 MLR HEMOGLOBIN A1C Cruz Garcia MD Work Phone: Start: 08-06-2023 Mammography Cruz garrido MD Work Phone: Plan of Treatment Date Care Activity Detail Author Start: 01-03-2027 Screening for malign ant neoplasm of colon [facility] Start: 12-28-2024 End: 12-28-2024 Patient encounter procedure 12/28/2024 11:30 AM EST Office Visit [facility] [address] [place] [id number] Cruz Garcia MD [address] [place] [phone] [facility] Start: 12-24-2024 Medicare Annual Wellness (AWV) Medicare Annual Wellness (AWV) [facility] Start: 08-05-2024 Screening for malign ant neoplasm of breast Mammogram [facility] Start: 06-23-2024 End: 06-23-2024 Patient encounter procedure 06/23/2024 9:30 AM EDT Office Visit [facility] [address] [place] [address] Cruz Garcia MD [address] [place] [phone] [facility] Start: 02-23-2024 End: 02-23-2024 Patient encounter procedure 02/23/2024 9:45 AM EST Office Visit [facility] [address] [place] [phone] Cruz Garcia MD [address] [place] [address] Arrived [facility] Comment on above: Arrived Start: 12-25-2023 End: 12-24-2024 Basic metabolic 1998 panel - Serum or Plasma Basic metabolic panel Lab Routine Benign essential hypertension (CMS/HCC) Expected: 12/25/2023 (Approximate), Expires: 12/24/2024 [facility] Comment on above: Expected: 12/25/2023 (Approximate), Expires: 12/24/2024 Start: 12-25-2023 End: 12-24-2024 CBC W Auto Differential panel - Blood CBC and differential Lab Routine Encounter for long-term (current) use of medications Expected: 12/25/2023 (Approximate), Expires: 12/24/2024 [facility] Comment on above: Expected: 12/25/2023 (Approximate), Expires: 12/24/2024 Start: 12-25-2023 End: 12-24-2024 Hemoglobin A1c/Hemoglobin.total in Blood Hemoglobin A1c Lab Routine Pre-diabetes Expected: 12/25/2023 (Approximate), Expires: 12/24/2024 [facility] Work Phone: Comment on above: Expected: 12/25/2023 (Approximate), Expires: 12/24/2024 Start: 12-25-2023 End: 12-24-2024 Hepatic function 2000 panel - Serum or Plasma Hepatic function panel Lab Routine Encounter for long-term (current) use of medications Expected: 12/25/2023 (Approximate), Expires: 12/24/2024 [facility] Comment on above: Expected: 12/25/2023 (Approximate), Expires: 12/24/2024 Start: 12-25-2023 End: 12-24-2024 Lipid 1996 panel - Serum or Plasma Lipid panel Lab Routine Dyslipidemia (CMS/HCC) Expected: 12/25/2023 (Approximate), Expires: 12/24/2024 [facility] Comment on above: Expected: 12/25/2023 (Approximate), Expires: 12/24/2024 Start: 12-25-2023 End: 12-24-2024 Noninvasive colorectal cancer DNA and occult blood screening [Presence] in Stool Cologuard colon cancer screening Lab Routine Colon cancer screening Expected: 12/25/2023 (Approximate), Expires: 12/24/2024 [facility] Comment on above: Expected: 12/25/2023 (Approximate), Expires: 12/24/2024 Start: 12-25-2023 End: 12-24-2024 Thyrotropin [Units/volume] in Serum or Plasma TSH Lab Routine Primary hypothyroidism (CMS/HCC) Expected: 12/25/2023 (Approximate), Expires: 12/24/2024 [facility] Comment on above: Expected: 12/25/2023 (Approximate), Expires: 12/24/2024 Start: 12-25-2023 End: 12-24-2024 Thyroxine (T4) free [Mass/volume] in Serum or Plasma T4, free Lab Routine Primary hypothyroidism (CMS/HCC) Expected: 12/25/2023 (Approximate), Expires: 12/24/2024 [facility] Comment on above: Expected: 12/25/2023 (Approximate), Expires: 12/24/2024 Start: 12-25-2023 End: 12-25-2023 Patient encounter procedure [facility] Comment on above: Arrived Start: 12-24-2023 Screening for malign ant neoplasm of colon [facility] Start: 10-22-2023 End: 10-22-2023 Patient encounter procedure 10/22/2023 9:45 AM EDT Office Visit [facility] [address] [place] [address] Cruz Garcia MD [address] [place] [address] Arrived [facility] Comment on above: Arrived Start: 10-18-2023 Influenza vaccination Influenza Vacc ine (#1) [facility] Start: 06-24-2016 Pneumococcal Vaccine : 65+ Years (1 of 1 - PCV) Pneumococcal Vaccine: 65+ Years (1 of 1 - PCV) [facility] Start: 06-24-2001 Pneumococcal Vaccine : 65+ Years (1 of 1 - PCV) Pneumococcal Vaccine: 65+ Years (1 of 1 - PCV) [facility] Start: 1950 Medicare Annual Wellness (AWV) Medicare Annual Wellness (AWV) [facility] Start: 1950 Screening for malign ant neoplasm of colon [facility] Immunizations Immunization Date Immunization Notes Care Provider Henry albarran 11-28-2023 influenza virus vacc ine, unspecified formulation Cruz Garcia MD Work Phone: [facility] 12-05-2022 Influenza, Seasonal, Quadrivalent, Adjuvanted Cruz Garcia MD Work Phone: [facility] 12-05-2022 influenza virus vacc ine, unspecified formulation Cruz Garcia MD Work Phone: [facility] 12-02-2021 Influenza, Seasonal, Quadrivalent, Adjuvanted Cruz Garcia MD Work Phone: [facility] 11-21-2019 Influenza, Seasonal, Quadrivalent, Adjuvanted Cruz Garcia MD Work Phone: [facility] Payers Date Payer Category Payer Medicare [employer]AGE [facility] MEDICARE ADVANTAGE [id number] 2021-Present [address] [place] [id number] 2021 Medicare (Managed Care) [facility] ADVANTAGE [id number] 1959 Unknown [id number] 1950 Unknown [id number] 1950 Unknown [id number] 1951 Unknown [id number] 1951 Unknown [id number] .2.9 1951 Unknown [id number] 1951 Unknown [id number] .2.9 1950 Unknown [id number] 1950 Unknown [id number] Social History Date Type Detail Facility Unknown if ever smoked [facility] Other Start: 12-25-2023 End: 06-23-2024 Sex Assigned At [email or web address] Other Start: 01-19-[address] [facility] Never smoked tobacco [facility] Start: 01-19-2023 Tobacco use and exposure Smokeless tobacco non-user [facility] Start: 12-25-2023 End: 06-23-2024 Alcoholic beverage intake Lifetime non-drinker (finding) [facility] Start: 12-25-2023 End: 06-23-2024 History of Social function [facility] Start: 1950 Sex assigned at Not on file [facility] History of Present illness Narrative 06-23-2024 Cruz Garcia MD - 06/23/2024 9:47 AM Mable Garcia MD - 06/23/2024 9:46 AM Mable Garcia MD - 06/23/2024 9:30 AM EDT Note Date & Type Note Facility 06-23-2024 History of Presen t illness Narrative Associated Problem(s): DDD (degenerative disc disease), lumbar Pain unchanged but overall feels like tolerable. Use OTC PRN. If worsens can refer to pain management. Associated Problem(s): Benign essential hypertension (CMS/HCC) BP okay today but reports slightly elevated at home and monitor PRN. Discussed DASH diet. Subjective Patient ID: Mi Harvey is a 73 y.o. female who presents for Follow-up (6m ). Follow up HTN and back pain. Patient feels well today. Checking BP PRN and slightly elevated. BP typically 140-150 systolic. BP 142/86 today. Taking medication daily and tolerating without side effects. Back pain stable. Continues to have pain in low back and across top hips. Pain radiates into left gluteal region when severe and down left leg. Pain increased with walking, bending, and standing. Overall feels like pain tolerable and able to walk and stay active. Uses OTC PRN and helps when needed. Review of Systems Respiratory: Negative for cough, [...] There is no guarding or rebound. Musculoskeletal: Cervical back: Neck supple. Right lower leg: No edema. Left lower leg: No edema. Neurological: Mental Status: She is alert. Assessment/Plan Problem List Items Addressed This Visit DDD (degenerative disc disease), lumbar - Primary Pain unchanged but overall feels like tolerable. Use OTC PRN. If worsens can refer to pain management. Primary hypothyroidism (CMS/HCC) Relevant Medications levothyroxine (Synthroid, Levoxyl) 50 MCG tablet Benign essential hypertension (CMS/HCC) BP okay today but reports slightly elevated at home and monitor PRN. Discussed DASH diet. Relevant Medications lisinopril-hydroCHLOROthiazide 20-25 MG tablet documented in this encounter [facility] History of Present illness Narrative 02-23-2024 Cruz Garcia MD - 02/23/2024 10:25 AM ESTCruz Garcia MD - 02/23/2024 9:45 AM EST Note Date & Type Note Facility 02-23-2024 History of Presen t illness Narrative Associated Problem(s): Acute bronchitis due to other specified organisms Take antibiotics for 5 days and will be in system 10-12 days. Use sudafed or other decongestants as needed. Use robitussin or robittussin-DM for cough. Use afrin for congestion but no longer than 3 days. Use mucinex to bring up phlegm. Use motrin or tylenol for fever, aches or pains. Increase fluid intake and rest. Should improve over next 5-7 days and if no better or worse call office. Images from the original note were not included. Subjective Patient ID: Mi Harvey is a 73 y.o. female who presents for URI (Ongoing for 10 days). C/o cough, congestion, and rhinorrhea x 10 days. Afebrile. Severe fatigue and no energy. Frequent cough productive yellow sputum. Chest tight and SOB. JOSÉ and sinus pressure in forehead and cheeks along with postnasal drip. Ears plugged and popping but no pain Denies sore throat or pain to swallow. Mild nausea but normal appetite. Denies recent sick contacts. Using OTC medication and mild relief. No improvement in symptoms since onset. Review of Systems Respiratory: Negative for cough, [...] There is no guarding or rebound. Musculoskeletal: Cervical back: Neck supple. Right lower leg: No edema. Left lower leg: No edema. Neurological: Mental Status: She is alert. Assessment/Plan Problem List Items Addressed This Visit Acute bronchitis due to other specified organisms - Primary Take antibiotics for 5 days and will be in system 10-12 days. Use sudafed or other decongestants as needed. Use robitussin or robittussin-DM for cough. Use afrin for congestion but no longer than 3 days. Use mucinex to bring up phlegm. Use motrin or tylenol for fever, aches or pains. Increase fluid intake and rest. Should improve over next 5-7 days and if no better or worse call office. Relevant Medications azithromycin (Zithromax) 250 MG tablet predniSONE (Deltasone) 50 MG tablet albuterol HFA 90 mcg/act inhaler documented in this encounter [facility] History of Present illness Narrative 12-25-2023 [...] colon cancer screening documented in this encounter [facility] History of Present illness Narrative 10-22-2023 Cruz Garcia MD - 10/22/2023 10:22 AM Mable Garcia MD - 10/22/2023 10:22 AM Mable Garcia MD - 10/22/2023 9:45 AM EDT Note Date & Type Note Facility 10-22-2023 History of Presen t illness Narrative Associated Problem(s): DDD (degenerative disc disease), lumbar Pain unchanged but overall feels like tolerable. Use OTC PRN. If worsens can refer to pain management. Associated Problem(s): Benign essential hypertension (CMS/HCC) BP improved but slightly elevated and monitor PRN. Discussed DASH diet. Images from the original note were not included. Subjective Patient ID: Mi Harvey is a 73 y.o. female who presents for Follow-up (3 m). Follow up HTN and back pain. Checking BP PRN and remains slightly elevated. BP typically 140-150 systolic. BP 146/70 today. Taking medication daily and tolerating without side effects. Back pain unchanged. Continues to have pain in low back and across top hips. Pain radiates into left gluteal region when severe and down left leg. Pain increased with walking, bending, and standing. Tried percocet but did not help. At times hard to walk and stay active due to pain. Overall feels like pain tolerable and able to walk and stay active. Uses OTC motrin PRN. Review of Systems Respiratory: Negative for cough, [...] There is no guarding or rebound. Musculoskeletal: Cervical back: Neck supple. Right lower leg: No edema. Left lower leg: No edema. Neurological: Mental Status: She is alert. Assessment/Plan Problem List Items Addressed This Visit DDD (degenerative disc disease), lumbar Pain unchanged but overall feels like tolerable. Use OTC PRN. If worsens can refer to pain management. Benign essential hypertension (CMS/HCC) - Primary BP improved but slightly elevated and monitor PRN. Discussed DASH diet. documented in this encounter [facility] Evaluation note 01-28-2023 Note Date & Type [...] weeks Jan, Nasal congestion (ICD-10 - R09.81) [facility] Other Evaluation note Note Date & Type [...] malignant neoplasms, colon documented in this encounter [facility] Healthcare Evaluation note Note Date & Type Note Facility Evaluation note Diagnosis Benign essential hypertension (CMS/HCC)- Primary Essential hypertension, benign DDD (degenerative disc disease), lumbar Degeneration of lumbar or lumbosacral intervertebral disc documented in this encounter [facility] Healthcare Evaluation note Note Date & Type Note [...] screening Special screening for malignant neoplasms, colon Acute bronchitis due to other specified organisms- Primary documented in this encounter [facility] Healthcare Evaluation note Note Date & Type Note [...] screening Special screening for malignant neoplasms, colon Benign essential hypertension (CMS/HCC)- Primary Essential hypertension, benign Degeneration of intervertebral disc of lumbar region with discogenic back pain and lower extremity pain Primary hypothyroidism (CMS/HCC) Unspecified hypothyroidism documented in this encounter [facility] History general Narrative - Reported Note Date & Type Note Facility History general Narrative - Reported Type Medical History HTN (hypertension) Surgical History melanoma excision Surgical History colonoscopy Surgical History wisdom teeth Surgical History tubal ligation Hospitalization History see above [facility] Other Summary Purpose Family History No Family History Records FoundNo Family History Records Found Advance Directives No Advanced Directives Records FoundNo Advanced Directives Records Found Additional Source Comments INFORMATION SOURCE (unrecogn ized section and content) DATE CREATED AUTHOR 11/16/2021 [facility] DATE CREATED AUTHOR AUTHOR'S ORGANIZ ATION 2024 [facility] EPIC REASON FOR VISIT (unrecogniz ed section and content) Reason Comments Medicare Annual Wellness Visit Subsequen t Wellness Reason Comments Follow-up 3 m Reason Comments URI Ongoing for 10 days Reason Comments Follow-up 6m Care Teams (unrecognized sec tion and content) Control Supervisor Relationship Specialty Start Date End Date Cruz Garcia MD [address] [place] [address] PCP - General Family Medicine 07/20/23 Cruz Garcia MD [address] [place] [phone] PCP - Sindhu ARAUZ 11/17/23 Control Supervisor Relationship Specialty Start Date End Date Cruz Garcia MD [address] [place] [address] PCP - General Family Medicine 07/20/23 Cruz Garcia MD [address] [place] [phone] PCP - Sindhu ARAUZ 11/17/23 Control Supervisor Relationship Specialty Start Date End Date Cruz Garcia MD [address] [place] [phone] PCP - General Family Medicine 07/20/23 Cruz Garcia MD [address] [place] [phone] PCP - Sindhu ARAUZ 11/17/23 Control Supervisor Relationship Specialty Start Date End Date Cruz Garcia MD [address] [place] [address] PCP - General Family Medicine 07/20/23 Control Supervisor Relationship Specialty Start Date End Date Cruz Garcia MD [address] [place] [address] PCP - General Family Medicine 07/20/23 Control Supervisor Relationship Specialty Start Date End Date Cruz Garcia MD [address] [place] [address] PCP - General Family Medicine 07/20/23 Cruz Garcia MD [address] [place] [address] PCP - Sindhu ARAUZ 11/17/23 Control Supervisor Relationship Specialty Start Date End Date Cruz Garcia MD [address] [place] [phone] PCP - General Family Medicine 07/20/23 Cruz Garcia MD [address] [place] [phone] PCP - Sindhu ARAUZ 11/17/23 Control Supervisor Relationship Specialty Start Date End Date Curz Garcia MD [address] [place] [phone] PCP - General Family Medicine 07/20/23 Cruz Garcia MD [address] [place] [phone] PCP Beth Manley MA 11/17/23 Control Supervisor Relationship Specialty Start Date End Date Cruz Garcia MD [address] [place] [phone] PCP - General Family Medicine 07/20/23 Cruz Garcia MD [address] [place] [address] PCP - Sindhu ARAUZ 11/17/23 FOR RECORDS [...] BE BASED ON THE PRIMARY CLINICAL RECORDS. [facility] [employer] [facility]. provides no warranty or guarantee of the accuracy or completeness of information in this document.
--- NOTE | 2024-11-03 11:40 | XR_ITS ---
The [address] [address] Patient Name: RADHA SUTHERLAND MRN: [id number] date: 1950 Sex: F Assigned Patient Location: ER Current Patient Location: ER Accession/Order Number: [id number] Exam Date: 11/03/2024 11:35 Report Date: 11/03/2024 12:35 At the request of: DILSHAD GANDHI MD Procedure: XR chest 1V PORTABLE AP ERECT CHEST 1135 hours CLINICAL HISTORY: Chest pain for the past 4 days. COMPARISON: None The heart is within normal limits. The aorta is mildly ectatic. There is no vascular congestion. No consolidation is seen. There is no effusion or pneumothorax. The osseous structures are intact. XR/XR chest 1V IMPRESSION: NO ACUTE FINDINGS Impression dictated by: Renetta Nguyen M.D. 11/03/2024 12:35 PM Dictation Location: [place] [address] Electronically authenticated by: [id number] Y Date: 11/03/2024 12:35
[2024-11-03 11:58] LABS: Hematocrit 37.6 % (36.0-48.0); Hemoglobin 12.8 g/dL (12.0-16.0); Immature Granulocytes Abs Auto 0.03 10^3/uL (0.00-0.03); Immature Granulocytes Pct Auto 0.4 % (0.0-0.5); Lymphocytes Absolute Auto 1.4 10^3/uL (1.2-3.8); Mean Corpuscular HGB Conc 34.0 g/dL (29.9-35.2); Mean Corpuscular Hemoglobin 29.4 pg (26.7-34.0); Mean Corpuscular Volume 86.4 fL (81.0-99.0); Platelet Count 209 10^3/uL (150-450); Red Blood Count 4.35 10^6/uL (4.20-5.40); White Blood Count 6.8 10^3/uL (4.0-11.0)
[2024-11-03 12:06] LABS: Anion Gap 16.6; Blood Urea Nitrogen 14.0 mg/dL (7.0-18.0); Calcium 9.5 mg/dL (8.5-10.1); Carbon Dioxide 24.6 mmol/L (21.0-32.0); Chloride 102 mmol/L (98-107); Estimated GFR (African America >60 (>=60 mL/min/1.73m^2); Estimated GFR (Non-African Ame >60 (>=60 mL/min/1.73m^2); Glucose 106 mg/dL (74-106); Potassium 3.2 mmol/L (3.5-5.1); Sodium 140 mmol/L (136-145)
[2024-11-03] MEDS: lidocaine HCL 15 ML, MAG HYDROX/ALUMINUM HYD/SIMETH 30 ML, HYOSCYAMINE SULFATE 0.25 MG PO (12:27)
== END 2024-11-03 13:24 | disposition home or self-care (01) ==
PROVIDERS: Emergency Provider Emergency Medicine; PCP Family Medicine
DX: R07.9 Chest pain, unspecified (principal)
CPT/HCPCS: 36415; 71045; 80048; 84484; 85025; 85378; 93005; 99285

== ENCOUNTER 2025-01-02 09:20 | Outpatient (OUT) | payer MEDICARE, SELFPAY ==
--- OUTSIDE RECORDS SUMMARY | 2025-01-02 09:27 | XMS_ITS | CCD ---
Author Organization [facility] Inform ion Partnership 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 Role Phone DR CRUZ GARCIA Attending Unavailable RADHA, DR CRUZ Torres Admitting Unavailable RADHA, DR CRUZ Torres Primary Care Unavailable RADHA, DR CRUZ Torres Consulting Unavailable MOLLY MOORE Admitting Unavailable MOLLY MOORE Attending Unavailable RADHA, DR CRUZ Torres Primary Care Unavailable Mi Littlejohn Unavailable Cruz Garcia MD Primary Care Provider Cruz Garcia MD Unavailable Cruz Garcia MD Primary Care Provider Ty Parr DO Attending Provider Liliana Deleon APRN Attending Provider Cruz Garcia MD Attending Provider Cruz aGrcia MD Unavailable Curz Garcia MD Primary Care Provider Cruz Garcia MD Primary Care Provider [phone] Cruz Garcia MD Unavailable Cruz Garcia MD Primary Care Provider CRUZ GARCIA Attending Unavailable NURY FINN Attending Unavailable CRUZ GARCIA Attending Unavailable CRUZ GARCIA Attending Unavailable Medications Current Medications MedicationDrug Class(es)DatesSig (Normalized)Sig (Original)[id number] 200 actuat albuterol 0.09 mg/actuat metered dose inhaler (5 sources)beta2-Adrenergic AgonistStart: 02-23-2024 End: 09-59-0871rprv 2 puff(s) by inhalation every four hours for wheezing albuterol HFA 90 mcg/act inhaler Indications: Acute bronchitis due to other specified organisms Inhale 2 puffs every 4 (four) hours if needed for shortness of breath or wheezing 8 g 2 02/23/2024 06/23/2024 Discontinuedazithromycin 250 mg oral tablet (5 sources)Macrolide AntimicrobialStart: 02-23-2024 End: 47-46-7540esnp 2 tablets by mouth once dailyazithromycin (Zithromax) 250 MG tablet Indications: Acute bronchitis due to other specified organisms 2 PO once a day on day #1, then 1 PO daily on days 2-5 6 tablet 02/23/2024 06/23/2024 Discontinuedlevothyroxine sodium 0.05 mg oral tablet (20 sources)l-ThyroxineStart: 04-11-2024 End: 58-93-1721wzoj 1 tablet by mouth before mealtimelevothyroxine (Synthroid, Levoxyl) 50 MCG tablet Indications: Primary hypothyroidism Take 1 tablet (50 mcg) by mouth in the morning. Take before meals. 90 tablet 3 06/23/2024 Active Start: 10-14-2023 End: 06-08-1901edcw 1 tablet by mouth in the morninglevothyroxine (Synthroid, Levoxyl) 50 MCG tablet Indications: Primary hypothyroidism (CMS/HCC) TAKE1 TABLET BY MOUTH IN THE MORNING ON AN EMPTY STOMACH 30 tablet 2 12/30/2023 Active Levothyroxine Sodium 25 MCG (Prior Auth: Rx Ref#:[id number]) Oral for 90 Days Activelidocaine 0.05 mg/mg topical ointment (2 sources)Antiarrhythmic, Amide Local AnestheticStart: 04-05-1879czxfcbhy 687472 unt/ml oral suspension (1 source)Polyene AntifungalStart: 72-12-7686tron 5 mL by mouth three times dailyNystatin 453995 UNIT/ML 5 ml Mouth/Throat 3 times a day for 10 days Swish and swallow Jan, Active Completed/Discontinued Medications MedicationDrug Class(es)DatesSig (Normalized)Sig (Original)cyclobenzaprine hydrochloride 10 mg oral tablet (8 sources)Muscle RelaxantStart: 11-04-2024 End: 44-70-9988wduf 1 tablet by mouth three times daily as needed for muscle spasmsCyclobenzaprine 10 mg tablet Discontinued 10 MG PO Three times daily as needed for muscle spasm November 04, 2024 12:00am November 22, 2024 11:38am End: 88-82-7977mgkf 1 tablet by mouth three times daily as needed for muscle spasmscyclobenzaprine (Flexeril) 10 MG tablet Take 1 tablet by mouth 3 (three) times a day as needed for muscle spasms. 12/25/2023 Discontinueddextromethorphan hydrobromide 1.5 mg/ml / pyrilamine maleate 1.5 mg/ml oral solution (1 source)Uncompetitive A-xhqsxz-O-aspartate Receptor Antagonist, Sigma-1 AgonistStart: 23-77-9730Uxgkxf DM 7.5-7.5 MG/5ML 20 ml Orally every 6 to 8 hours prn cough for 3 days Jan, Not-Taking/PRNesomeprazole 20 mg delayed release oral capsule (2 sources)Proton Pump InhibitorStart: 11-10-2024 End: 33-65-6349Wonvszmlqnia Magnesium 20 mg capsule,delayed release(DR/EC) Discontinued MG PO November 102:00am November 22, 2024 11:38am hydroCHLOROthiazide 25 mg / lisinopril 20 mg oral tablet (20 sources)Thiazide Diuretic, Angiotensin Converting Enzyme InhibitorStart: 11-10-2024 End: 66-24-4142Btfamxcixd-Hydrochlorothiazide 20-25 mg tablet Discontinued TAB PO November 10, 2024 12:00am November 18, 2024 10:45amStart: 07-02-2023 End: 49-74-3891uqkk 2 tablets by mouth once dailylisinopril-hydroCHLOROthiazide 20-25 MG tablet Indications: Benign essential hypertension Take 2 tablets by mouth Daily 180 tablet 3 06/23/2024 06/23/2025 ActiveLisinopril- hydroCHLOROthiazide 20-25 MG 1 tablet Orally ActiveKetorolac (1 source)Nonsteroidal Anti-inflammatory Drug, Cyclooxygenase InhibitorStart: 32-31-1032Fabtcjs per 15 mg June, 60 mgpredniSONE 20 mg oral tablet (4 sources)Start: 11-10-2024 End: 22-98-7116escu 2 tablets by mouth once dailyPrednisone 20 mg tablet Discontinued 20 MG PO .COMPLEX November 10, 2024 12:00am November 11:39am Take 2 tabs po daily x 5 daysStart: 02-23-2024 End: 77-99-1640ofxm 1 tablet by mouth once dailypredniSONE (Deltasone) 50 MG tablet Indications: Acute bronchitis due to other specified organisms Take 1 tablet (50 mg) by mouth Daily for 6 days 6 tablet 02/23/2024 02/29/2024 Active triamcinolone acetonide 0.055 mg/actuat metered dose nasal spray (1 source)CorticosteroidStart: 72-00-3456qltd 2 puff(s) nasal route once daily as neededNasacort Allergy 24HR 55 MCG/ACT 2 puffs each nostril Nasally Once a day for 10 days Jan, Not-Taking/PRNvalACYclovir 1000 mg oral tablet (2 sources)Herpesvirus Nucleoside Analog DNA Polymerase Inhibitor, Herpes Simplex Virus Nucleoside Analog DNA Polymerase Inhibitor, Herpes Zoster Virus Nucleoside Analog DNA Polymerase InhibitorStart: 11-10-2024 End: 36-42-4814Ohqelrjgqati 1 gram tablet Discontinued 1000 MG PO Three times daily November 10, 2024 12:00amNovember 22, 2024 11:39am Problems Active Problems Problem ClassificationProblemDateDocumented DateEpisodic/ChronicDisorders of lipid metabolism (20 sources)Hyperlipidemia, unspecified; Translations: [Dyslipidemia]Onset: 046528-13-6888RuiigqoGufjsjcxg hypertension (20 sources)Essential (primary) hypertension; Translations: [Benign essential hypertension]Onset: 22-78-6643WwjccoaLdppxtj (1 source)Candidal stomatitisEpisodicOther aftercare (1 source)Other snf (current) drug therapy; Translations: [OTH VICE PRESIDENT FOR PHILANTHROPY CURRENT DRUG THERAPY]Onset: 16-57-5364OysruifgEqdme ear and sense organ disorders (3 sources)Sensorineural hearing loss, bilateral; Translations: [Sensorineural hearing loss, bilateral]43-96-8588OjpgutsPgrra liver diseases (10 sources)Non-alcoholic fatty liver; Translations: [Fatty (change of) liver, not elsewhere classified]Onset: 176839-80-8448FipgbinZkghc liver diseases (9 sources)Non-alcoholic fatty 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-alcoholic steatohepatitis; Translations: [Fatty (change of) liver, not elsewhere classified]Onset: 681772-87-5459EfiwyotBhkbi nutritional; endocrine; and metabolic disorders (1 source)Obesity, unspecified; Translations: [OBESITY UNSPECIFIED]Onset: 22-59-5278UzpctkvGdhpy nutritional; endocrine; and metabolic disorders (17 sources)Obesity caused by energy imbalance; Translations: [Class 1 obesity due to excess calories with serious comorbidity and body mass index (BMI) of 30.0 to 30.9 in adult]Onset: 091476-63-3349BrndcmfUplbt nutritional; endocrine; and metabolic disorders (4 sources)Body mass index 30+ - obesity; Translations: [Obesity, unspecified] Onset: 416058-55-9902AmpwkjrYyzco screening for suspected conditions (not mental disorders or infectious disease) (2 sources)Patient encounter status; Translations: [Encounter for screening for malignant neoplasm of colon]84-51-8045FmnohysbSsulg upper respiratory disease (1 source)Nasal congestionEpisodicSpondylosis; intervertebral disc disorders; other back problems (20 sources)Degeneration of lumbar intervertebral disc; Translations: [DDD (degenerative disc disease), lumbar]Onset: 633525-38-3415FaxazhjLndxxsv disorders (20 sources)Hypothyroidism, unspecified; Translations: [Unspecified acquired hypothyroidism]Onset: 929370-48-1619VlfluavXeleo infection (4 sources)Herpes zoster; Translations: [Zoster without complications]11-10-2024 Episodic Past or Other Problems Problem ClassificationProblemDateDocumented DateEpisodic/ChronicAcute bronchitis (12 sources)Acute infective bronchitis; Translations: [Acute bronchitis due to other specified organisms]Onset: 02-23-2024 Resolved: 431461-98-5227DivsredcRztkglx tract disease (19 sources)Biliary calculus; Translations: [Calculus of gallbladder without cholecystitis without obstruction]Onset: 145962-54-8930LpoxutpgEqnztghg mellitus without complication (20 sources)Prediabetes; Translations: [Prediabetes]Onset: EpisodicMood disorders (13 sources)Mood disordersOnset: Other aftercare (17 sources)Long-term current use of drug therapy; Translations: [Other termite exterminator (current) drug therapy]Onset: 495044-28-8304Rzjhslmv Results Test NameValueInterpretationReference RangeFacilityBasophils Auto (Bld) [#/Vol] Ordered By: Ty Parr on 08-18-9768Ryrlledsc (Bld) [#/Vol]0.1 10 3/uL0.0-0.1 [facility] HospitalBasophils/100 WBC Auto (Bld)Ordered By: Ty Parr on 21-04-5633Cvblywmis/100 WBC (Bld)0.7 %0.2-2.0[facility] HospitalEosinophils/100 WBC Auto (Bld)Ordered By: Ty Parr on 83-72-9591Ixwpefdvpyl/100 WBC (Bld)1.5 %0.9-7.0[facility] Erythrocyte distribution width Auto (RBC) [Ratio]Ordered By: Ty Parr on 34-72-6164Euioamcnknz distribution width (RBC) [Ratio]13.2 %11.0-15.0[facility] HospitalFibrin D-dimer [Presence] in Platelet poor plasma by Latex agglutinationOrdered By: Ty Parr on 50-31-1921Vjgvyy D-dimer LA Ql (PPP)0.28 mg/L FEU<=0.59Way[facility] HospitalComment on above: Increases in D-Dimer concentration observed withthromboembolic events can be variable due to localization,size, and age of the thrombus. Therefore, a thromboembolicevent cannot be diagnosed with certainty on the basis of thereference range. D-Dimers may also be elevated for a varietyof disorders inc luding advanced age, , coronarydisease, cancer, liver disease, infection, inflammation,hematoma, DIC, trauma, post-surgery, diabetes, thrombolyticor anticoagulant therapy, stress, and generalizedhospitalization. Glomerular filtration rate (GFR) estimation in non- AmericanOrdered By: Ty Parr on 31-15-0469FRN/1.73 sq M.predicted among non-blacks MDRD (S/P/Bld) [Vol rate/Area]mL/min/{1.73_m2}>=60 mL/min/1.73m 2FUniversity Hospitals Elyria Medical CenterHematocrit Auto (Bld) [Volume fraction]Ordered By: Ty Parr on 88-19-3838Aescwnqynt (Bld) [Volume fraction]37.6 %36.0-48.0[facility] HospitalHemoglobin [Mass/volume] in BloodOrdered By: Ty Parr on 89-85-7970Jqrnznvjmp (Bld) [Mass/Vol]12.8 g/dL12.0-16.0[facility] HospitalLaboratory - Chemistry and Chemistry - challengeOrdered By: Ty Parr on 34-78-6228Ubvespv [Mass/Vol]9.5 mg/dL8.5-10.1FUniversity Hospitals Elyria Medical CenterChloride [Moles/Vol]102 mmol/X22-897SqejunyanWayne HospitalCO2 [Moles/Vol]24.6 mmol/L21.0-32.0[facility] Creatinine [Mass/Vol]0.69 mg/dL0.55-1.02[facility] GFR/1.73 sq M.predicted MDRD (S/P/Bld) [Vol rate/Area]mL/min/{1.73_m2}>=60 mL/min/1.73m 2FUniversity Hospitals Elyria Medical CenterGlucose [Mass/Vol]106 mg/hE76-132 [facility] HospitalPotassium [Moles/Vol]3.2 mmol/LLow3.5-5.1 [facility] Hospitalodium [Moles/Vol]140 mmol/U952-976SluwfmfdvWayne HospitalUrea nitrogen [Mass/Vol]14.0 mg/dL7.0-18.0[facility] HospitalUrea nitrogen/Creatinine [Mass ratio]20.3 mg/mgWayne HospitalLaboratory - Hematology and Cell countsOrdered By: Ty Parr on 66-35-2138Dczsazka granulocytes/100 WBC (Bld)0.4 %0.0-0.5 [facility] HospitalLeukocytes [#/volume] corrected for nucleated erythrocytes in Blood by Automated counOrdered By: Ty Parr on 11-03-2024 WBC corrected for nucl RBC Auto (Bld) [#/Vol]6.8 10 3/uL4.0-11.0[facility] HospitalLymphocytes Auto (Bld) [#/Vol]Ordered By: Ty Parr on 31-16-2485Ndlkmkhqspe (Bld) [#/Vol]1.4 10 3/uL1.2-3.8[facility] HospitalLymphocytes/100 WBC Auto (Bld)Ordered By: Ty Parr on 16-72-3063Buvibmtzcwj/100 WBC (Bld)20.8 %20.5-60.0[facility]H Auto (RBC) [Entitic mass]Ordered By: Ty Parr on 42-53-9890NVB (RBC) [Entitic mass]29.4 pg26.7-34.0[facility] HospitalMCHC Auto (RBC) [Mass/Vol]Ordered By: Ty Parr on 59-57-3660IHDC (RBC) [Mass/Vol]34.0 g/dL29.9-35.2FUniversity Hospitals Elyria Medical CenterMCV Auto (RBC) [Entitic vol] Ordered By: Ty Parr on 43-44-5909XJA (RBC) [Entitic vol]86.4 fL81.0-99.0 [facility] HospitalMonocytes Auto (Bld) [#/Vol]Ordered By: Ty Parr on 85-50-4870Uogcujavv (Bld) [#/Vol]0.9 10 3/uLHigh0.3-0.8[facility] HospitalMonocytes/100 WBC Auto (Bld)Ordered By: Ty Parr on 44-60-1415Hbymmwyqz/100 WBC (Bld)13.9 %High1.7-12.0[facility] HospitalNeutrophils Auto (Bld) [#/Vol]Ordered By: Ty Parr on 11-03-2024 Neutrophils (Bld) [#/Vol]4.3 10 3/uL1.4-6.5FUniversity Hospitals Elyria Medical Center Neutrophils/100 WBC Auto (Bld)Ordered By: Ty Parr on 11-03-2024 Neutrophils/100 WBC (Bld)62.7 %43.0-75.0[facility] HospitalNo Panel InformationOrdered By: Ty Parr on 86-07-8402Iqxxsxgxsgz # (Auto)0.1 10 3/uL0.0-0.7FUniversity Hospitals Elyria Medical CenterImmature Granulocyte # (Auto)0.03 10 3/uL0.00-0.03[facility] HospitalTroponin I High Sensitivity6.6 pg/mL4.0-51.3FUniversity Hospitals Elyria Medical CenterComment on above:CUT-OFF POINTS HAVE BEEN ESTABLISHED BASED ON THE FOURTHUNIVERSAL DEFINITION OF MYOCARDIAL INFARCTION. THE UPPERREFERENCE LIMIT (URL) OF TROPONIN, DEFINED THE 99THPERCENTILE OF cTnI DISTRIBUTION IN A REFERENCE POPULATION,HAS BEEN CONFIRMED THE DECISION THRESHOLD FOR MIDIAGNOSIS.99TH PERCENTILE = 51.4 PG/MLNOTE: HIGH-SENSITIVITY TROPONIN ASSAY IS NOT INTENDED TO BEUSED IN ISOLATION BUT SHOULD BE INTERPRETED IN CONJUNCTIONWITH OTHER DIAGNOSTIC AND CLINICAL INFORMATION.Platelet mean volume Auto (Bld) [Entitic vol]Ordered By: Ty Parr on 46-92-7412Rtgvgzrr mean volume (Bld) [Entitic vol]10.3 fL9.5-13.5 [facility] HospitalPlatelets Auto (Bld) [#/Vol]Ordered By: Ty Parr on 23-06-6527Ugruaeumk (Bld) [#/Vol]209 10 3/tJ588-292YobxzcpreWayne HospitalRBC Auto (Bld) [#/Vol]Ordered By: Ty Parr on 55-02-0457LSC (Bld) [#/Vol]4.35 10 6/uL4.20-5.40W[facility]ot Memorial Hospitalerum or plasma anion gap determinationOrdered By: Ty Parr on 04-97-8164Hzkrk gap [Moles/Vol]16.6 mmol/LFUniversity Hospitals Elyria Medical CenterALL BASIC METABOLIC PANEL on 77-95-5875Trhdm gap [Moles/Vol]13.9 mmol/LNOMS HealthcareCalcium [Mass/Vol] 9.1 mg/dL8.5 - 10.1 mg/dLNOMS HealthcareChloride [Moles/Vol]106 mmol/L98 - 107 mmol/LNOMS HealthcareCO2 [Moles/Vol]26.6 mmol/L21.0 - 32.0 mmol/LNOMS Healthcare Creatinine [Mass/Vol]0.94 mg/dL0.55 - 1.02 mg/dLNORI HealthcareGFR/1.73 sq M.predicted CKD-EPI (S/P/Bld) [Vol rate/Area]>60>=60 mL/min/1.73m 2NOMS HealthcareGlucose [Mass/Vol]106 mg/dL74 - 106 mg/dLNORI HealthcarePotassium [Moles/Vol]3.5 mmol/L3.5 - 5.1 mmol/LNOMS HealthcareSodium [Moles/Vol]143 mmol/L 136 - 145 mmol/LNOMS HealthcareTBH EGFR-NON AF ZORLQCPA62Xqh>=60 mL/min/1.73m 2 NOMS HealthcareUrea nitrogen [Mass/Vol]17 mg/dL7.0 - 18.0 mg/dLNOSaint Luke's [facility] Urea nitrogen/Creatinine [Mass ratio]18.1 mg/mgNORI HealthcareALL CBC WITH AUTO DIFFon 03-42-7215KTRXKNLLB ABSOLUTE AUTO0.1NOMS HealthcareBasophils/100 WBC (Bld)0.8 %0.2 - 2.0 %NOMS HealthcareEosinophils/100 WBC (Bld)2.2 %0.9 - 7.0 % NOMHca Midwest DivisionErythrocyte distribution width (RBC) [Ratio]12.9 %11.0 - 15.0 % NOMS HealthcareHematocrit (Bld) [Volume fraction]40.2 %36.0 - 48.0 %NOM HealthcareHemoglobin (Bld) [Mass/Vol]12.8 g/dL12.0 - 16.0 g/dLNOSaint Luke's North Hospital[facility] IMMATURE GRANULOCYTES ABS AUTO0.03NOSaint Luke's North Hospital–Barry RoadImmature granulocytes/100 WBC (Bld)0.4 %0.0 - 0.5 %NOM HealthcareInterpretation and review of laboratory resultsAbnormalNOSaint Luke's North Hospital–Barry RoadLYMPHOCYTES ABSOLUTE AUTO2.1NOM[facility] Healthcare Lymphocytes/100 WBC (Bld)28.6 %20.5 - 60.0 %[facility]ullivanH (RBC) [Entitic mass]28.6 pg26.7 - 34.0 pgMissouri Baptist Hospital-SullivanHC (RBC) [Mass/Vol]31.8 g/dL29.9 - 35.2 g/dLMissouri Baptist Hospital-SullivanV (RBC) [Entitic vol]89.9 fL81.0 - 99.0 fLExcelsior Springs Medical CenterMONOCYTES ABSOLUTE KDIS9CkvyFXAWExcelsior Springs Medical CenterMonocytes/100 WBC (Bld)13 % High1.7 - 12.0 %[facility] CenterNEUTROPHILS ABSOLUTE AUTO4.1NOMS [facility] Neutrophils/100 WBC (Bld)55 %43.0 - 75.0 %[facility] Medical CenterPlatelet mean volume (Bld) [Entitic vol]10.5 fL9.5 - 13.5 fLExcelsior Springs Medical CenterTB EO #0.2[facility] TB GRZ262TFHACarondelet Health RBC4.47NOCarondelet Health WBC7.4[facility]YNCT[facility] LIPID PROFILE (FASTING)on 22-94-7271OBNL HDL RATIO 3.3NOSaint Luke's North Hospital–Barry RoadComment on above:3.3 - 4.4 LOW RISK 4.4 - 7.1 AVERAGE RISK 7.1 - 11.0 MODERATE RISK >11.0 HIGH RISK Cholesterol [Mass/Vol]188 mg/dLNINF - 200 mg/dLExcelsior Springs Medical CenterCholesterol in HDL [Mass/Vol]57 mg/dL40 - 60 mg/dLMOUNTAIN VIEW HOSPITAL HealthcareComment on above:> or =60 mg/dl - LOW CARDIOVASCULAR RISK <40 mg/dl - HIGH CARDIOVASCULAR RISK Magnesium [Mass/Vol]112.4 mg/dLExcelsior Springs Medical CenterComment on above:<100 mg/dl OPTIMAL 100-129 mg/dl NEAR OR ABOVE OPTIMAL 130-159 mg/dl BORDERLINE HIGH 160-189 mg/dl HIGH >190 mg/dl VERY HIGH Magnesium [Mass/Vol]18.6 mg/dLExcelsior Springs Medical CenterTriglyceride [Mass/Vol]93 mg/dLNINF - 150 mg/dLExcelsior Springs Medical CenterALL THYROID STIM HORMONEon 98-53-9225PEY Qn1.434 m[IU]/LNPutnam County Memorial HospitalALL THYROXINE (T4) FREEon 95-05-4499Fbhk T4 [Mass/Vol]0.97 ng/dL0.76 - 1.46 ng/dLNORI HealthcareCLINISYNCNMEMORIAL HOSPITAL [facility] HealthcareHMHP LIVER PANELon 56-36-1609Hbffbii [Mass/Vol]3.5 g/dL3.4 - 5.0 g/dLNORI HealthcareALBUMIN GLOBULIN RATIO0.6NORI HealthcareALP [Catalytic activity/Vol]92 U/L46 - 116 U/L NOMS HealthcareALT [Catalytic activity/Vol]31 U/L14 - 59 U/LNOMS HealthcareAST [Catalytic activity/Vol]22 U/L15 - 37 U/LNOMS HealthcareBilirubin [Mass/Vol]0.4 mg/dL0.2 - 1.0 mg/dLNORI HealthcareBilirubin.indirect [Mass/Vol]0.1 mg/dL0.0 - 0.2 mg/dLMOUNTAIN VIEW HOSPITAL HealthcareGlobulin (S) [Mass/Vol]5.7 g/dLNORI HealthcareProtein [Mass/Vol]9.2 g/dLHigh6.4 - 8.2 g/dLNOSaint Luke's North Hospital–Barry RoadMLR HEMOGLOBIN A1Con 01-96-3329Sfrtuow [Mass/Vol]120 mg/dLNOSaint Luke's North Hospital–Barry RoadGkdgxarvfvLzN1c (Bld) [Mass fraction] 5.8 %4.5 - 6.2 %[facility] HealthcareComment on above:ADA RECOMMENDED LIMIT 4.0 - 6.0 ADA THERAPEUTIC TARGET < 7.0 ACTION SUGGESTED > 7.0 CLINISYNCExcelsior Springs Medical CenterNo Panel Informationon 11-57-1662Qkmqpxzjcpcicm and review of laboratory resultsAbnormalNOPershing Memorial HospitalINISYNMUSC Health [facility] TOMOSYNTHESIS SCREENING BIon 40-48-8156[place] [address] Mammography Report Signed Patient: MI SUTHERLAND MR#: [id number] : 1950 Acct:[id number] Age/Sex: 73 / F ADM Date: 08/05/23 Loc: MAMMO Attending Dr: Cruz Garcia M.D. Ordering Physician: Cruz Garcia M.D. Results: Date of Service: 08/05/23 Follow Up: Procedure(s): MM tomosynthesis screening BI Accession Number(s): [id number] cc: Cruz Garcia M.D. Patient Name: MI SUTHERLAND MR#: [id number] : 1950 Exam Date: 08/05/2023 Ordering Doctor: DR Cruz Garcia . RADIOLOGY REPORT PROCEDURE: MM TOMOSYNTHESIS SCREENING BI COMPARISON: MG MAMM SCREEN LEONARDO W CAD, 11/09/2019. MG MAMM LEONARDO SCRN W CAD DIG, 07/12/2014. MG MAMM LEONARDO SCRN W CAD DIG, 12/30/2012. INDICATIONS: Screening Calculator Name NCI Breast Cancer Risk Assessment Tool 5 Year Breast Cancer Risk 1.60% Lifetime Breast Cancer Risk 4.10% Personal Breast Cancer No Personal Ovarian Cancer No Treatments Excision Family Cancers None [facility]: [facility] BREAST COMPOSITION: The breasts are almost entirely fatty. FINDINGS: DIAGNOSTIC CATEGORY 1--NEGATIVE. RIGHT BREAST: No significant suspicious finding. No significant change has occurred. LEFT BREAST: No significant suspicious finding. No significant change has occurred. RECOMMENDATIONS: ROUTINE MAMMOGRAM AND CLINICAL EVALUATION IN 12 MONTHS. PLEASE NOTE: A NORMAL MAMMOGRAM DOES NOT EXCLUDE THE POSSIBILITY OF BREAST CANCER. A CLINICALLY SUSPICIOUS PALPABLE LUMP SHOULD BE BIOPSIED. Dictated by: Bony Garvin M.D. on 08/06/2023 at 09:06 Approved by: Bony Garvin M.D. on 08/06/2023 at 09:09 Dictated By: Bony Garvin M.D. Signed By: 08/06/23909 DD/ 8 TD/TT: Radiologic Technology Program Director:TBHRadiology, Radiologist, - 08/06/2023 [place] [address] Mammography Report Signed Patient: MI SUTHERLAND MR#: [id number] : 1950 Acct:[id number] Age/Sex: 73 / F ADM Date: 08/05/23 Loc: MAMMO Attending Dr: Cruz Garcia M.D. Ordering Physician: Cruz Garcia M.D. Results: Date of Service: 08/05/23 Follow Up: Procedure(s): MM tomosynthesis screening BI Accession Number(s): [id number] cc: Cruz Garcia M.D. Patient Name: MI SUTHERLAND MR#: [id number] : 1950 Exam Date: 08/05/2023 Ordering Doctor: DR Cruz Garcia . RADIOLOGY REPORT PROCEDURE: MM TOMOSYNTHESIS SCREENING BI COMPARISON: MG MAMM SCREEN LEONARDO W CAD, 11/09/2019. MG MAMM LEONARDO SCRN W CAD DIG, 07/12/2014. MG MAMM LEONARDO SCRN W CAD DIG, 12/30/2012. INDICATIONS: Screening Calculator Name NCI Breast Cancer Risk Assessment Tool 5 Year Breast Cancer Risk 1.60% Lifetime Breast Cancer Risk 4.10% Personal Breast Cancer No Personal Ovarian Cancer No Treatments Excision Family Cancers None LOCATION: [facility] BREAST COMPOSITION: The breasts are almost entirely fatty. FINDINGS: DIAGNOSTIC CATEGORY 1--NEGATIVE. RIGHT BREAST: No significant suspicious finding. No significant change has occurred. LEFT BREAST: No significant suspicious finding. No significant change has occurred. RECOMMENDATIONS: ROUTINE MAMMOGRAM AND CLINICAL EVALUATION IN 12 MONTHS. PLEASE NOTE: A NORMAL MAMMOGRAM DOES NOT EXCLUDE THE POSSIBILITY OF BREAST CANCER. A CLINICALLY SUSPICIOUS PALPABLE LUMP SHOULD BE BIOPSIED. Dictated by: Bony Garvin M.D. on 08/06/2023 at 09:06 Approved by: Bony Garvin M.D. on 08/06/2023 at 09:09 Dictated By: Bony Garvin M.D. Signed By: 08/06/23909 DD/ 8 TD/TT: Radiologic Technology Program Director: [facility] CenterRadiology Study observation (narrative)[facility] TOMOSYNTHESIS SCREENING BIOrdered By: Radiologist Radiology on 23-31-6827TLMNExcelsior Springs Medical Center Work Phone: cbc AUTO DIFFon 31-01-7585KJJO #0.1 103/ulNormal 0.0-0.1The [facility] HospitalComment on above:Performed By: #### CBC #### [facility] [address], [place] [address] Dr. Fanta Rosenbergsophils/100 WBC (Bld)0.8 %Normal0.2-2.0[facility] Comment on above:Performed By: #### CBC #### [facility] [address] [address] [address] Fanta Curry #0.1 103/ulNormal0.0-0.7The [facility] HospitalComment on above: Performed By: #### CBC #### [facility] [address] [place] [address] Dr. Fanta Gambleosinophils/100 WBC (Bld)1.5 %Normal0.9-7.0[facility] Comment on above:Performed By: #### CBC #### [facility] [address] [place] [address] Dr. Fanta Gamblerythrocyte distribution width (RBC) [Ratio]13.2 %Clxppe04.0-15.0 [facility] HospitalComment on above:Performed By: #### CBC #### [facility] [address] [place] [address] Dr. Fanta BarreraHematocrit (Bld) [Volume fraction]40.1 %Meixzm27.0-48.0[facility] HospitalComment on above:Performed By: #### CBC #### [facility] [address] [place] [address] Dr. Fanta BarreraHemoglobin (Bld) [Mass/Vol]12.8 g/vKBozrdj98.0-16.0The [facility] [place] Dublinment on above:Performed By: #### CBC #### [facility] [address] [place] [address] Dr. Fanta Asher #0.03 10e3/ulNormal0.00-0.03The [facility] [place] Dublinment on above:Performed By: #### CBC #### [facility] [address] [place] [address] Dr. Fanta Asehr %0.5 %Normal0.0-0.5The [facility] HospitalComment on above: Performed By: #### CBC #### [facility] [address] [place] [address] Dr. Fanta AliceaMPH #1.7 103/ulNormal1.2-3.8The Wayne HospitalComment on above:Performed By: #### CBC #### [facility] [address] [place] [address] Dr. Fanta BarreraLymphocytes/100 WBC (Bld)26.1 %Dqwmgd78.5-60.0The [facility] on above:Performed By: #### CBC #### [facility] [address] [place] [address] Dr. Fanta ZambranoUAL DIFF REQNONormalThe Wayne HospitalComment on above: Performed By: #### CBC #### [facility] [address] [place] [address] Dr. Fanta Shelton (RBC) [Entitic mass]29.3 muLmmyge56.7-34.0The [facility] HospitalComment on above:Performed By: #### CBC #### [facility] [address] [place] [address] Dr. Fanta Shelton (RBC) [Mass/Vol]31.9 g/qLIumejm99.9-35.2The [facility] on above:Performed By: #### CBC #### [facility] [address] [place] [address] Dr. Fanta Shelton (RBC) [Entitic vol]91.8 sCZawmhs84.0-99.0The [facility] HospitalCombronson [facility] on above:Performed By: #### CBC #### [facility] [address] [place] [address] Dr. Fanta Sam #0.8 103/ulNormal0.3-0.8The [facility] HospitalComment on above:Performed By: #### CBC #### [facility] [address] [place] [address] Dr. Fanta Coburnocytes/100 WBC (Bld)12.5 %Critically high1.7-12.0The [facility] on above:Performed By: #### CBC #### [facility] [address] [place] [address] Dr. Fanta Camp #3.8 103/ulNormal1.4-6.5The [facility] HospitalComment on above:Performed By: #### CBC #### [facility] [address] [place] [address] Dr. Fanta BarreraNeutrophils/100 WBC (Bld)58.6 %Mghkgv42.0-75.0The [facility] on above:Performed By: #### CBC #### [facility] [address] [place] [address] Dr. Fanta Torrezlet mean volume (Bld) [Entitic vol]11.3 fLNormal9.5-13.5The [facility] HospitalComment on above:Performed By: #### CBC #### [facility] [address] [place] [address] Dr. Fanta BarreraPLT240 103/ndLvpmcu903-912Hpp [facility] on above: Performed By: #### CBC #### [facility] [address] [place] [address] Dr. Fanta BarreraRBC4.37 106/ulNormal4.20-5.40The [facility] on above:Performed By: #### CBC #### [facility] [address] [place] [address] Dr. Fanta BarreraWBC6.6 103/ulNormal4.0-11.0The [facility] on above: Performed By: #### CBC #### [facility] [address] [place] [address] Dr. Fanta Barclay T3on 42-71-2999SFSZ T32.45 pg/mlLNormal2.18-3.98The [facility] on above:Performed By: #### FT3, BMP, LIVER, TSH, LIPID #### [facility] [address] [place] [address] Dr. Fanta Barclay T4on 32-56-3900Huyo T4 [Mass/Vol]1.05 ng/dLNormal0.76-1.46 The [facility] on above:Performed By: #### FT4 #### [facility] [address] [place] [address] Dr. Fanta BarreraGLYCOHEMOGLOBIN A1Con [id number] RECOMMENDATIONSEE BELOWJamestown The Wayne HospitalComment on above:Result Comment: ADA RECOMMENDED LIMIT 4.0 - 6.0 ADA THERAPEUTIC TARGET < 7.0 ACTION SUGGESTED > 7.0Performed By: #### A1C #### [facility] [address] [address] [address] Fanta BarreraGlucose [Mass/Vol]123 mg/dLNoWright-Patterson Medical CenterComment on above:Performed By: #### A1C #### [facility] [address] [address] [address] Fanta BarreraHbA1c (Bld) [Mass fraction]5.9 %Normal4.5-6.2[facility] HospitalComment on above:Performed By: #### A1C #### [facility] [address] [place] [address] Dr. Fanta BarreraLIPID PROFILEon [id number]-HDL RATIO NORMSEE BELOWOhioHealth Grove City Methodist HospitalCombronson [facility] on above:Result Comment: 3.3 - 4.4 LOW RISK 4.4 - 7.1 AVERAGE RISK 7.1 - 11.0 MODERATE RISK >11.0 HIGH RISKPerformed By: #### FT3, BMP, LIVER, TSH, LIPID #### [facility] [address] [place] [address] Dr. Fanta BarreraCholesterol [Mass/Vol]180 mg/dLNormal<=200[facility] Comment on above:Performed By: #### FT3, BMP, LIVER, TSH, LIPID #### [facility] [address] [place] [address] Dr. Fanta BarreraCholesterol in HDL [Mass/Vol]58 mg/dPEmkrgc13-07Qhl [facility] HospitalComment on above:Performed By: #### FT3, BMP, LIVER, TSH, LIPID #### [facility] [address] [place] [address] Dr. Fanta BarreraCholesterol in LDL [Mass/Vol]106.6 mg/dLNoWright-Patterson Medical CenterComment on above:Performed By: #### FT3, BMP, LIVER, TSH, LIPID #### [facility] [address] [address] [address] Fanta BarreraCholesterkeerthi.total/Cholesterol in HDL [Mass ratio]3.1 {ratio} NormalCleveland Clinic Union HospitalComment on above:Performed By: #### FT3, BMP, LIVER, TSH, LIPID #### [facility] [address] [address] [address] Fanta Vaughn NORMAL> or = 60 mg/dl - LOW CARDIOVASCULAR RISK <40 mg/dl - HIGH CARDIOVASCULAR RISKOhioHealth Grove City Methodist HospitalComment on above:Performed By: #### FT3, BMP, LIVER, TSH, LIPID #### [facility] [address] [address] [address] Fanta Franco CALC NORMALSEE BELOWOhioHealth Grove City Methodist HospitalComment on above:Result Comment: <100 mg/dl OPTIMAL 100 - 129 mg/dl NEAR OR ABOVE OPTIMAL 130 - 159 mg/dl BORDERLINE HIGH 160 - 189 mg/dl HIGH >190 mg/dl VERY HIGH Performed By: #### FT3, BMP, LIVER, TSH, LIPID #### [facility] [address] [address] [address] Fanta BarreraTriglyceride [Mass/Vol]77 mg/dLNormal<=150[facility] Comment on above:Performed By: #### FT3, BMP, LIVER, TSH, LIPID #### [facility] [address] [address] [address] Fanta ChawlaLDL CALC15.4 mg/dLNoWright-Patterson Medical CenterCombronson south [facility] hospital on above: Performed By: #### FT3, BMP, LIVER, TSH, LIPID #### [facility] [address] [address] [address] Fanta Llamas PROFILEon 83-37-7406Xtucjhx [Mass/Vol]3.7 g/dLNormal3.4-5.0 The Wayne HospitalComment on above:Performed By: #### FT3, BMP, LIVER, TSH, LIPID #### [facility] [address] [place] [address] Dr. Fanta BarreraAlbumin/Globulin [Mass ratio]0.7 {ratio}NormalThe Wayne HospitalComment on above:Performed By: #### FT3, BMP, LIVER, TSH, LIPID #### [facility] [address] [address] [address] Fanta Nash [Catalytic activity/Vol]79 U/XNjjjjy88-062Lfg [facility] HospitalComment on above:Performed By: #### FT3, BMP, LIVER, TSH, LIPID #### [facility] [address] [place] [address] Dr. Fanta Pulido [Catalytic activity/Vol]74 U/LCritically aywg59-69Xvq [facility] HospitalComment on above:Performed By: #### FT3, BMP, LIVER, TSH, LIPID #### [facility] [address] [place] [address] Dr. Fanta BarreraAST [Catalytic activity/Vol]45 U/LCritically byki65-79Okz [facility] HospitalComment on above:Performed By: #### FT3, BMP, LIVER, TSH, LIPID #### [facility] [address] [place] [address] Dr. Fanta VillarrealI, CONJUGATED0.1 mg/dLNormal0.0-0.2[facility] Comment on above:Performed By: #### FT3, BMP, LIVER, TSH, LIPID #### [facility] [address] [place] [address] Dr. Fanta Villarrealirubin [Mass/Vol]0.5 mg/dLNormal0.2-1.0[facility] Comment on above:Performed By: #### FT3, BMP, LIVER, TSH, LIPID #### [facility] [address] [place] [address] Dr. Fanta BarreraGlobulin (S) [Mass/Vol]5.3 g/dLNormalThe Wayne HospitalComment on above:Performed By: #### FT3, BMP, LIVER, TSH, LIPID #### [facility] [address] [place] [address] Dr. Fanta BarreraProtein [Mass/Vol]9.0 g/dLCritically high6.4-8.2The [facility] HospitalComment on above:Performed By: #### FT3, BMP, LIVER, TSH, LIPID #### [facility] [address] [address] [address] Fanta West CHEM 8 (BAS METB)on 78-85-4598Webvo gap [Moles/Vol]10.0 mmol/LNormalThe Wayne HospitalComment on above:Performed By: #### FT3, BMP, LIVER, TSH, LIPID #### [facility] [address] [address] [address] Fanta BarreraCalcium [Mass/Vol]9.4 mg/dLNormal8.5-10.1[facility] Comment on above:Performed By: #### FT3, BMP, LIVER, TSH, LIPID #### [facility] [address] [place] [address] Dr. Fanta BarreraChloride [Moles/Vol]104 mmol/EInlxgx52-142Ldl [facility] Comment on above:Performed By: #### FT3, BMP, LIVER, TSH, LIPID #### [facility] [address] [address] [address] Fanta BarreraCO2 [Moles/Vol]28.6 mmol/SUcbwsv32.0-32.0[facility] Comment on above:Performed By: #### FT3, BMP, LIVER, TSH, LIPID #### [facility] [address] [address] [address] Fanta BarreraCreatinine [Mass/Vol]0.72 mg/dLNormal0.55-1.02The [facility] HospitalComment on above:Performed By: #### FT3, BMP, LIVER, TSH, LIPID #### [facility] [address] [place] [address] Dr. Fanta GambleGFR-AF INDIAN>60Normal>=60The Wayne HospitalComment on above:Performed By: #### FT3, BMP, LIVER, TSH, LIPID #### [facility] [address] [place] [address] Dr. Yilan ChangEGFR-NON AF INDIAN>60Normal>=60The [facility] HospitalComment on above:Performed By: #### FT3, BMP, LIVER, TSH, LIPID #### [facility] [address] [address] [address] Fanta BarreraGlucose [Mass/Vol]104 mg/bPPtqkvy85-516KceCleveland Clinic Union Hospital Comment on above:Performed By: #### FT3, BMP, LIVER, TSH, LIPID #### [facility] [address] [place] [address] Dr. Fanta BarreraPotassium [Moles/Vol]3.6 mmol/LNormal3.5-5.1[facility] Comment on above:Performed By: #### FT3, BMP, LIVER, TSH, LIPID #### [facility] [address] [place] [address] Dr. Fanta BarreraSodium [Moles/Vol]139 mmol/NIogmzr422-998Esd [facility] Comment on above:Performed By: #### FT3, BMP, LIVER, TSH, LIPID #### [facility] [address] [place] [address] Dr. Fanta BarreraUrea nitrogen [Mass/Vol]15.0 mg/dLNormal7.0-18.0The [facility] HospitalComment on above:Performed By: #### FT3, BMP, LIVER, TSH, LIPID #### [facility] [address] [place] [address] Dr. Fanta BarreraUrea nitrogen/Creatinine [Mass ratio]20.8 mg/mgNormalThe [facility] HospitalComment on above:Performed By: #### FT3, BMP, LIVER, TSH, LIPID #### [facility] [address] [place] [address] Dr. Fanta Freeman 68-15-6962JDD4.041 uIU/mLNormal0.358-3.740[facility] HospitalComment on above:Performed By: #### FT3, BMP, LIVER, TSH, LIPID #### [facility] [address] [place] [address] Dr. Fanta Barrera Vital Signs Date TimeVital SignValuePerforming KutnzonbmRcudtgio28-60-9413 11:37-0400Body bbqucz292.37 cmCruz Garcia MD Work Phone: [phone]10-07-2025 11:37-0400 Body mass index (BMI) [Ratio]31.1 kg/m2Cruz Garcia MD Work Phone: [phone] [place], [place] 9568710-07-2025 11:37-0400 Body cjwwdskoone08.1 [degF]Cruz Garcia MD Work Phone: [phone] [place], [place] 9568710-07-2025 11:37-0400 Body skparx17.18 kgCruz Garcia MD Work Phone: [phone] [place], [place] 9568710-07-2025 11:37-0400 Diastolic blood eakyrqgu63 mm[Hg]Cruz Garcia MD Work Phone: [phone] [place], [place] 9568710-07-2025 11:37-0400 Heart eeeq919 /minCruz Garcia MD Work Phone: [phone] [place], [place] 9568710-07-2025 11:37-0400 Respiratory rate20 /minCruz Garcia MD Work Phone: [phone])[address] [place], [place] 9568710-07-2025 11:37-0400 SaO2% (BldA) [Mass fraction]97 %Cruz Garcia MD Work Phone: [phone] [place], [place] 9568710-07-2025 11:37-0400 Systolic blood gjpyhibu120 mm[Hg]Cruz Garcia MD Work Phone: 1(471)[address] [place], [place] 9568709-25-2025 10:48-0400 Body aprpfx052.37 cmCruz Garcia MD Work Phone: [phone] [place], [place] 9568709-25-2025 10:48-0400 Body mass index (BMI) [Ratio]30.8 kg/m2Cruz Garcia MD Work Phone: [phone] [place], [place] 9568709-25-2025 10:48-0400 Body frainurtrbo84.1 [degF]Cruz Garcia MD Work Phone: [phone] [place], [place] 9568709-25-2025 10:48-0400 Body owrvku59.27 kgCruz Garcia MD Work Phone: 1(868)[address] [place], [place] 9568709-25-2025 10:48-0400 Diastolic blood phzdobkg89 mm[Hg]Cruz Garcia MD Work Phone: 1(784)[address]09-25-2025 10:48-0400 Heart rate80 /minCruz Garcia MD Work Phone: 1([phone] [place], [place] 9568709-25-2025 10:48-0400 Respiratory rate18 /minCruz Garcia MD Work Phone: [phone] [place], [place] 9568709-25-2025 10:48-0400 SaO2% (BldA) [Mass fraction]96 %Cruz Garcia MD Work Phone: [phone])[address]09-25-2025 10:48-0400 Systolic blood nliroekc514 mm[Hg]Cruz Garcia MD Work Phone: 1(981)[address]05-08-2025 09:34-0400 Body .4 cmCruz Garcia MD Work Phone: [facility] CenterLnjvyqojqh01-13-2363 09:34-0400Body mass index (BMI) [Ratio]31.79 kg/m2Cruz Garcia MD Work Phone: [facility] CenterMclgaxcxqg47-74-3309 09:34-0400Body temperature 96.4 [degF]Cruz Garcia MD Work Phone: [facility] CenterHgspsdzlfz01-35-3133 09:34-0400Body obcrwj64 kg Cruz Garcia MD Work Phone: [facility] CenterElglthkmyf71-03-8536 09:34-0400Diastolic blood osgufasz71 mm[Hg]Cruz Garcia MD Work Phone: [facility] CenterLlkgocdjpz63-40-9343 09:34-0400Heart rate89 /min Cruz Garcia MD Work Phone: [facility] CenterZbpawzeuvf70-45-1241 09:34-0400Respiratory rate20 /minCruz Garcia MD Work Phone: [facility] CenterXsbpcbrjdm28-13-2975 09:34-1613NzQ1% (BldA) [Mass fraction]98 %Cruz Garcia MD Work Phone: [facility] CenterDfcoeugyqz80-75-0748 09:34-0400Systolic blood hffcdutr031 mm[Hg]Cruz Garcia MD Work Phone: [facility] CenterIhdojedzcc70-04-8568 09:49-0500Body ehqnkv238.4 cmCruz Garcia MD Work Phone: [facility] CenterZamhwyatnu05-45-9252 09:49-0500Body mass index (BMI) [Ratio]31.14 kg/m2Cruz Garcia MD Work Phone: [facility] CenterHsubxdkrwh75-65-9904 09:49-0500Body temperature 95.5 [degF]Cruz Garcia MD Work Phone: [facility] CenterIgbrzxywfm72-41-8296 09:49-0500Body jlgooo57.18 kgCruz Garcia MD Work Phone: [facility] CenterRxioazvppy41-00-2311 09:49-0500Diastolic blood nnoychdu02 mm[Hg]Cruz Garcia MD Work Phone: [facility] CenterOsvfiexhbz40-11-0054 09:49-0500Heart tptt050 /min Cruz Garcia MD Work Phone: [facility] CenterTlkjlngobf42-83-7433 09:49-0500Respiratory rate22 /minCruz Garcia MD Work Phone: [facility] CenterVyhglmtudw96-80-9501 09:49-9985NoF1% (BldA) [Mass fraction]98 %Cruz Garcia MD Work Phone: [facility] CenterBpyithdhcr74-07-0836 09:49-0500Systolic blood gjoosynx965 mm[Hg]Cruz Garcia MD Work Phone: [facility] CenterYesukkwjts18-53-9639 10:32-0500Body czlumh518.4 cmCruz Garcia MD Work Phone: [facility] CenterWvcahagdel20-79-9174 10:32-0500Body mass index (BMI) [Ratio]30.81 kg/m2Cruz Garcia MD Work Phone: [facility] CenterTnfrcwcbhr07-86-8149 10:32-0500Body ytftqwwqbza93 [degF]Cruz Garcia MD Work Phone: 1([phone] [place], [place] [address]Gwxxulyhab61-49-9730 10:32-0500Body tzmzyg38.28 kgCruz Garcia MD Work Phone: [facility] CenterSqwogqmpje41-99-4240 10:32-0500Diastolic blood eipfanse33 mm[Hg]Cruz Garcia MD Work Phone: [facility] CenterSgheeyexst15-12-9230 10:32-0500Heart qddo135 /min Cruz Garcia MD Work Phone: [facility] CenterWivncqnnph75-62-7010 10:32-0500Respiratory rate20 /minCruz Garcia MD Work Phone: [facility] CenterYalklfkjjc71-20-9785 10:32-1930IaT7% (BldA) [Mass fraction]97 %Cruz Garcia MD Work Phone: [facility] CenterWlebzghevs98-33-4238 10:32-0500Systolic blood opdsvhuq471 mm[Hg]Cruz Garcia MD Work Phone: [facility] CenterEbkzosiwou66-71-3611 09:52-0400Body lvwaxl227.4 cmCruz Garcia MD Work Phone: [facility] CenterVkyxmcoaoq88-04-1848 09:52-0400Body mass index (BMI) [Ratio]31.14 kg/m2Cruz Garcia MD Work Phone: [facility] CenterKhcrtnzzsl26-05-3064 09:52-0400Body temperature 97.5 [degF]Cruz Garcia MD Work Phone: [address] [address]Ufoemnvzuq00-99-6440 09:52-0400Body wwaujv02.18 kgCruz Garcia MD Work Phone: [facility] CenterKlplfzxoyt46-50-5150 09:52-0400Diastolic blood zfieqxgx34 mm[Hg]Cruz Garcia MD Work Phone: [facility] CenterVjfvvlmdly28-26-8218 09:52-0400Heart rate86 /min Cruz Garcia MD Work Phone: [address] [address]Hvyhjusccs15-09-1859 09:52-0400Respiratory rate22 /minCruz Garcia MD Work Phone: [facility] CenterDdqpfrsnuz44-80-8948 09:52-6987KgE8% (BldA) [Mass fraction]97 %Cruz Garcia MD Work Phone: [address] [address]Silqmggdhl62-04-6129 09:52-0400Systolic blood zysgamfm546 mm[Hg]Cruz Garcia MD Work Phone: [facility] CenterVjmewkvjed46-47-3951 12:20-0500Body .1 Jitendra Littlejohn Other [employer] Other 12-13-2023 12:20-0500Body mass index (BMI) [Ratio] 31.41 kg/b9LnwvseMi Littlejohn Other [employer] Other 12-13-2023 12:20-0500Body islvaatajmd68.2 [degF]Mi Littlejohn Other [employer] Other 12-13-2023 12:20-0500Body nzfuoy77.64 kgMi Littlejohn Other [employer] Other 12-13-2023 12:20-0500Diastolic blood sokiggyz49 mm[Hg] Mi Annetta Other [employer] Other 12-13-2023 12:20-0500Respiratory rate18 /minPaanni Littlejohn Other [employer] Other 12-13-2023 12:20-1993LnB5% (BldA) [Mass fraction]97 % Mimikaela Littlejohn Other [employer] Other 12-13-2023 12:20-0500Systolic blood unltqyan365 mm[Hg] Mimikaela Littlejohn Other no[employer] Other Encounters Encounter DateEncounter TypeCare ProviderFacilityStart: 12-21-2024 End: 15-97-6768Qkmbsds encounter procedureNoms [facility] - Emani Monae AudiologyComment on above:Sensorineural hearing loss (SNHL) of both ears (Primary Dx)Start: 12-21-2024 End: 45-40-3897vgakpllyxpPPGF NADERERNot AvailableStart: 11-23-2024 End: 27-03-2744Xgzawt flowsheetNury HenryLake [facility] Work Phone: [facility] [place] AudiologyStart: 11-23-2024 End: 63-13-8726Ximjdu flowsheetNury Melissa [facility]-A Work Phone: noMS [place] AudiologyStart: 11-23-2024 End: 46-33-1484Cukibtby SupportDekarla Torres [facility]-A Work Phone: noMS [place] AudiologyComment on above:Sensorineural hearing loss (SNHL) of both ears (Primary Dx)Start: 11-22-2024 End: 57-90-0936itiioovrjsSvur Naderer MD Work Phone: [facility] Work Phone: Start: 11-22-2024 End: 75-31-5841Sgbktxo encounter procedureCruz Garcia MD-[facility] [place] Work Phone: Start: 11-10-2024 End: 66-56-3650pmnbofjipxJogr Naderer MD Work Phone: [facility] Work Phone: Start: 11-10-2024 End: 85-10-4253Vkwmncj encounter procedureLiliana Herrera APRN-[facility] [place] Work Phone: Start: 14-04-2241Pty-patient / Non-visitTy Armstrong DO-[facility] Work Phone: Start: 06-23-2024 End: 88-37-1200Miinpc Harriet Garcia MD Work Phone: noms C[facility] FMStart: 06-23-2024 End: 47-49-2669Lurhemeleonora Garcia MD Work Phone: [facility] FMStart: 06-23-2024 End: 19-30-8423pvtnwdtfjzMPDK NADERERNot AvailableStart: 06-23-2024 End: 81-54-7647Rnejei outpatient visit 15 minutesCruz Garcia MD Work Phone: [facility] FMComment on above:Benign essential hypertension (CMS/HCC) (Primary Dx); Degeneration of intervertebral disc of lumbar region with discogenic back pain and lower extremity pain; Primary hypothyroidism (CMS/HCC)Start: 02-23-2024 End: 21-12-3674Oeucmjjovana Garcia MD Work Phone: [facility] FMStart: 02-23-2024 End: 18-31-3866Gjwxdmeleonora Garcia MD Work Phone: [facility] FMStart: 02-23-2024 End: 56-15-3818Lkshju outpatient visit 15 minutesCruz Garcia MD Work Phone: [facility] CWM FMComment on above:Acute bronchitis due to other specified organisms (Primary Dx)Start: 02-23-2024 End: 49-83-4656htmjanoslbXFNI NADERERNot AvailableStart: 12-29-2023 End: 97-06-4848Sfokomcns Result EncounterCruz Garcia MD Work Phone: noms External Department UnsolicitedStart: 12-29-2023 End: 87-71-0287Jjejoodlj Result EncounterCruz Garcia MD Work Phone: noms External Department UnsolicitedStart: 12-25-2023 End: 67-25-8027Alittr Harriet Garcia MD Work Phone: [facility] FMStart: 12-25-2023 End: 23-06-4307Dxbnzz Harriet Garcia MD Work Phone: [facility] CWM FMStart: 12-25-2023 End: 56-50-2362Pgpuusr encounter procedureCruz Garcia MD Work Phone: [facility] Work Phone: Start: 12-25-2023 End: 72-36-2083Ygjvll follow up visit related to original Akil Garcia MD Work Phone: [facility] CWM FMComment on above:Medicare annual wellness visit, subsequent (Primary Dx); Primary hypothyroidism (CMS/HCC); Pre-diabetes; Class 1 obesity due to excess calories with serious comorbidity and body mass index (BMI) of 30.0 to 30.9 in adult; Benign essential hypertension (CMS/HCC); Encounter for long-term (current) use of medications; Dyslipidemia (CMS/HCC); Colon cancer screeningStart: 12-25-2023 End: 67-50-4988zhtzwichywGMZC NADERERNot AvailableStart: 10-22-2023 End: 48-84-4707Enybar flowsAdin Garcia MD Work Phone: [facility] FMStart: 10-22-2023 End: 14-42-7946Eitcot flowsheetCruz Garcia MD Work Phone: [facility] CWM FMStart: 10-22-2023 End: 30-36-1275Zdejpi outpatient visit 15 minutesCruz Garcia MD Work Phone: [facility] CWM FMComment on above:Benign essential hypertension (CMS/HCC) (Primary Dx); DDD (degenerative disc disease), lumbarStart: 08-06-2023 End: 63-38-4046Zrzjocbsp Result EncounterCruz Garcia MD Work Phone: n[facility] External Department UnsolicitedStart: 08-06-2023 End: 10-16-4494Xdtofangb Result EncounterCruz Garcia MD Work Phone: noms External Department UnsolicitedStart: 01-28-2023 End: 45-32-5772ankeltfiwnDeujcg Dymond Other [facility] [employer] Other Start: 20-70-8900Clwulx outpatient new 10 minutes Mi LittlejohnG [facility] Care ClydeStart: 10-28-2021 End: 39-04-5625yqcbvkufddHD CRUZ Torres NADERERFacility:O9Tcgkq: 08-31-9921tyhxduovjq MOLLY LATHAMENFacility:H1 Procedures DateProcedureProcedure DetailPerforming ClinicianStart: 84-69-5535QXI BASIC METABOLIC PANELCruz Garcia MD Work Phone: Start: 38-34-9413SCA CBC WITH AUTO DIFFCruz Garcia MD Work Phone: Start: 94-28-8927LBI LIPID PROFILE (FASTING)Cruz Garcia MD Work Phone: Start: 73-63-3208VXD THYROID STIM HORMONECruz Garcia MD Work Phone: Start: 86-89-3210PYT THYROXINE (T4) FREECruz Garcia MD Work Phone: Start: 47-07-6725YCCK LIVER PANELCruz Garcia MD Work Phone: Start: 10-31-7568IMA HEMOGLOBIN L5UPczaCruz Garcia MD Work Phone: Start: 70-49-9348YM TOMOSYNTHESIS SCREENING BIMarc Radha LEONARDO Work Phone: Start: 93-66-4650GcxtlhlgfoyWhjf Naderer MD Work Phone: Plan of Treatment DateCare ActivityDetailAuthorStart: 95-70-6336Vcjbnghtw for malignant neoplasm of colonNOMS HealthcareStart: 01-18-2025 End: 41-39-7017Blqfsam encounter pyuywcnhm54/03/2025 9:00 AM EST Office Visit [facility] [address] [place] [phone] [facility] [place] [facility]iologyStart: 12-28-2024 End: 06-60-4147Cyzgaei encounter fwppvytbx65/12/2025 11:30 AM EST Office Visit [facility] [address] [place] [address] Cruz Garcia MD [address] [place] [address] [facility] FMStart: 11-08-2025Medicare Annual Wellness (AWV)Medicare Annual Wellness (AWV)[facility] HealthcareStart: 12-21-2024 End: 43-70-4248Bhxdzdj encounter kgzcspjri57/05/2025 10:15 AM EST Office Visit [facility] [address] [place] [phone] [facility] [place] AudiologyStart: 42-23-4620MOIEI-19 Vaccine ( season)COVID-19 Vaccine ( season)[facility] HealthcareStart: 10-17-2024 Influenza vaccinationInfluenza Vaccine (#1)[facility] HealthcareStart: 08-05-2024 Screening for malignant neoplasm of breastMammogramNORI HealthcareStart: 06-23-2024 End: 22-80-8053Cxnvdmu encounter frylqwgqy35/08/2025 9:30 AM EDT Office Visit [facility] [address] [place] [address] Cruz Garcia MD [address] [place] [phone] [facility] FMStart: 02-23-2024 End: 31-65-3814Wgedbzt encounter angxagtef36/07/2025 9:45 AM EST Office Visit NOMAlfonso OGLESBY [address] [place] [phone] Cruz Garcia MD [address] [place] [phone] [facility] FMComment on above:ArrivedStart: 12-25-2023 End: 71-52-1338Rrjze metabolic 1998 panel - Serum or PlasmaBasic metabolic panel Lab Routine Benign essential hypertension (CMS/HCC) Expected: 12/25/2023 (Appr oximate), Expires: 12/24/2024[facility] HealthcareComment on above:Expected: 12/25/2023 (Approximate), Expires: 12/24/2024Start: 12-25-2023 End: 38-76-3829MDV W Auto Differential panel - BloodCBC and differential Lab Routine Encounter for long-term (current) use of medications Expected: 09/2023 (Approximate), Expires: 12/24/2024[facility] HealthcareComment on above: Expected: 12/25/2023 (Approximate), Expires: 12/24/2024Start: 12-25-2023 End: 17-94-6528Cvnizdlkby A1c/Hemoglobin.total in BloodHemoglobin A1c Lab Routine Pre-diabetes Expected: 12/25/2023 (Approximate), Expires: 12/24/2024[facility] Healthcare Work Phone: Comment on above:Expected: 12/25/2023 (Approximate), Expires: 12/24/2024Start: 12-25-2023 End: 05-41-0591Ualdtjw function 2000 panel - Serum or PlasmaHepatic function panel Lab Routine Encounter for long-term (current) use of medications Expected: 12/25/2023 (Approximate), Expires: 12/24/2024[facility] HealthcareComment on above: Expected: 12/25/2023 (Approximate), Expires: 12/24/2024Start: 12-25-2023 End: 05-70-7165Bhlag 1996 panel - Serum or PlasmaLipid panel Lab Routine Dyslipidemia (CMS/HCC) Expected: 12/25/2023 (Approximate), Expires: 12/24/2024 [facility] HealthcareComment on above:Expected: 12/25/2023 (Approximate), Expires: 12/24/2024Start: 12-25-2023 End: 33-62-2708Goewysxhsns colorectal cancer DNA and occult blood screening [Presence] in StoolCologuard colon cancer screening Lab Routine Colon cancer screening Expected: 12/25/2023 (Approximate), Expires: 12/24/2024[facility] Comment on above:Expected: 12/25/2023 (Approximate), Expires: 12/24/2024Start: 12-25-2023 End: 26-24-7115Thkssckzcaw [Units/volume] in Serum or PlasmaTSH Lab Routine Primary hypothyroidism (CMS/HCC) Expected: 12/25/2023 (Approximate), Expires: 12/24/2024[facility] HealthcareComment on above:Expected: 12/25/2023 (Approximate), Expires: 12/24/2024Start: 12-25-2023 End: 32-57-7979Umptttgky (T4) free [Mass/volume] in Serum or PlasmaT4, free Lab Routine Primary hypothyroidism (CMS/HCC) Expected: 12/25/2023 (Approximate), Expires: 12/24/2024[facility] HealthcareComment on above:Expected: 12/25/2023 (Approximate), Expires: 12/24/2024Start: 12-25-2023 End: 45-96-9642Feeowsp encounter procedureNOMS CWM FMComment on above:Arrived Start: 33-09-5448Vlhqajtuu for malignant neoplasm of colonNOMS HealthcareStart: 10-22-2023 End: 42-78-4750Vukvqah encounter /05/2024 9:45 AM EDT Office Visit [facility] [address] [place] [phone] Cruz Garcia MD [address] [place] [phone] ArrivedNOMS CWM FMComment on above:ArrivedStart: 56-78-4928Piqzfhbdw vaccinationInfluenza Vaccine (#1)NOM[facility] HealthcareStart: 00-89-0863Tvzingonvjxd Vaccine: 65+ Years (1 of 1 - PCV)Pneumococcal Vaccine: 65+ Years (1 of 1 - PCV) NOM HealthcareStart: 79-68-6398Jlytkwhzvfuy Vaccine: 65+ Years (1 of 1 - PCV) Pneumococcal Vaccine: 65+ Years (1 of 1 - PCV)[facility] HealthcareStart: 06-24-1951 Skin Cancer ScreeningSkin Cancer ScreeningNORI HealthcareStart: 1950 Medicare Annual Wellness (AWV)Medicare Annual Wellness (AWV)[facility] Start: 97-89-4185Cpchcibki for malignant neoplasm of colonNOMS Healthcare Immunizations Immunization DateImmunizationNotesCare RnnqaqqyZnifiial09-93-5616yydzkrzvf virus vaccine, unspecified formulationCruz Garcia MD Work Phone: [facility] Xeahsiwmjd45-85-7046Epblzunls, Seasonal, Quadrivalent, AdjuvantedCruz Garcia MD Work Phone: [facility] Pkmpgbcamm63-80-5711mwqwwfcmj virus vaccine, unspecified formulationCruz Garcia MD Work Phone: [facility] CenterUydflsbgte79-99-1842Acazcnxow, Seasonal, Quadrivalent, AdjuvantedMarc Radha LEONARDO Work Phone: noSaint [facility] Hospital–Barry RoadXqhgqsledo79-88-6414Kjqdodssh, Seasonal, Quadrivalent, AdjuvantedMarc Radha LEONARDO Work Phone: [facility] Healthcare Payers DatePayer CategoryPayerPolicy ID2022MedicareANTHEM MEDICARE ADVANTAGE ANTHEM MEDICARE ADVANTAGE [id number] 2021-Present [address] [place] [id number] 2022Medicare (Managed Care)[employer]HEM MEDICARE ADVANTAGE Member Subscriber Plan / Payer (Effective 2021-) Name: Mi Sutherland Relation to Subscriber: Self Name: Mi Sutherland Payer ID: Not on file Group ID: [id number] Type: Not on file Address: [address] [place] [id number] [id number] [id number]. [id number] 2..[id number] 2..1.696552.3.57[id number] 2..1.756946.3.57[id number] 2..1.502297.3.57[id number] 2..[id number] [id number] Social History DateTypeDetailFacilityUnknown if ever smokedAspen [employer] Other Start: 12-25-2023 End: 16-49-2729Dkp Assigned At [facility] [employer] Other Start: 01-19-2023 End: 53-76-2998Yxxrkdy smoking status NHISNever smoked tobaccoMOUNTAIN VIEW HOSPITAL Healthcare Start: 94-12-8829Adfltvv use and exposureSmokeless tobacco non-userNOMS HealthcareStart: 12-25-2023 End: 58-31-4159Okjwvnrxq beverage intakeLifetime non-drinker (finding)[facility] HealthcareStart: 12-25-2023 End: 40-90-5047Vvcigli of Social functionNORI HealthcareStart: 03-21-5447Fys assigned at [facility] hospitalNot on fileM[facility]IEW [facility] HealthcareSexFemale (finding)[facility] Hospitaltart: 69-42-3510Yll Assigned At [facility] Hospitaltart: 12-81-2239CsqNqromoRGGB Healthcare Functional Status YcrdFpeqxswntyUldlpbRvcqalzl91-27-1831Otxluvh Health Questionnaire 2 item (PHQ- 2) [Reported][facility] Clinical Notes 01-28-2023 to 12-21-2024 Note Date & VyoxNdfdFdgrczwu81-87-7890 History of Present illness Narrative* Emani Brown MA - 12/21/2024 10:15 AM EST Patient was in today with programming questions on her hearing aids. Patient states she still does not hear voices as well as she would like. Aids were cleaned and checked. Firmware update was completed. Sound adjustments were made to patient preferences. Patient was offered a follow up in approx one month. I offered this at no charge. Also advised patient that she may need an updated audio. Patient did not want to schedule right now as we do not know her benefits for 2025. Patient paid $50 [employer] today. Appointment scheduled for two week follow up at no charge Cosigned by OFELIA Quijano at 12/21/2024 4:40 PM EST documented in this [facility]10-08-2025 History of Present illness Narrative* Emani Brown MA - 11/23/2024 11:15 AM EDT Patient picked up hearing aid supplies and paid $20. Cosigned by OFELIA Quijano at 11/23/2024 1:16 PM EDT documented in this [facility]09-25-2025 Evaluation note* Diagnosis Onset Date Resolution Status Admit Date Shingles acutept2024 10:28am [facility] Work Phone: [phone]) 708-497705-08-2025 History of Present illness Narrative* Cruz Garcia MD - 06/23/2024 9:47 AM EDTAssociated Problem(s): DDD (degenerative disc disease), lumbar Pain unchanged but overall feels like tolerable. Use OTC PRN. If worsens can refer to pain management. * Cruz Garcia MD - 06/23/2024 9:46 AM EDTAssociated Problem(s): Benign essential hypertension (CMS/HCC) BP okay today but reports slightly elevated at home and monitor PRN. Discussed DASH diet. * Cruz Garcia MD - 06/23/2024 9:30 AM EDT Subjective Patient ID: Mi Sutherland is a 73 y.o. female who presents [...] lisinopril-hydroCHLOROthiazide 20-25 MG tablet documented in this encounterExcelsior Springs Medical CenterBhpuyccfdv61-97-7525 History of Present illness Narrative* Cruz Garcia MD - 02/23/2024 10:25 AM ESTAssociated Problem(s): Acute bronchitis due to other specified organisms Take antibiotics for 5 days and will be in system 10-12 days. Use sudafed or other decongestants asneeded. Use robitussin or robittussin-DM for cough. Use afrin for congestion but no longer than 3 days. Use mucinex to bring up phlegm. Use motrin or tylenol for fever, aches or pains. Increase fluidintake and rest. Should improve over next 5-7 days and if no better or worse call office. * Cruz Garcia MD - 02/23/2024 9:45 AM EST Images from the original note were not included. Subjective Patient ID: Mi Sutherland is a 73 y.o. female who presents [...] 10-12 days. Use sudafed or other decongestants asneeded. Use robitussin or robittussin-DM for cough. Use afrin for congestion but no longer than 3 days. Use mucinex to bring up phlegm. Use motrin or tylenol for fever, aches or pains. Increase fluidintake and rest. Should improve over next 5-7 days and if no better or worse call office. Relevant Medications azithromycin (Zithromax) 250 MG tablet predniSONE (Deltasone) 50 MG tablet albuterol HFA 90 mcg/act inhaler documented in this encounterExcelsior Springs Medical CenterIjodkomywn10-70-6915 History of Present illness Narrative* Cruz Garcia MD - 12/25/2023 10:54 AM ESTAssociated Problem(s): Medicare annual wellness visit, subsequent Due for labs. Discussed proper diet and regular aerobic exercise. Need aerobic exercise 5-6 days a week for 30 minutes at a time. Smaller portions and limit total calories. Colonoscopy 10 years ago and willing to have cologuard. Tetanus every 10 years. Advised not to smoke. Discussed daily Aspirin therapy. * Cruz Garcia MD - 12/25/2023 10:54 AM ESTAssociated Problem(s): Class 1 obesity due to excess calories with serious comorbidity and body mass index (BMI) of 30.0 to 30.9 in adult Discussed proper diet and regular aerobic exercise. Recommend Weight Watchers and need to limit calories and smaller portions. Need to increase activity and regular aerobic exercise several days a week for 30 minutes at a time. * Cruz Garcia MD - 12/25/2023 10:53 AM ESTAssociated Problem(s): Benign essential hypertension (CMS/HCC) BP elevated today but reports normal at home and monitor PRN. Discussed DASH diet. * Cruz Garcia MD - 12/25/2023 10:30 AM EST Subjective Patient ID: Mi Sutherland is a 73 y.o. female who presents for Medicare Annual Wellness Visit Subsequent (Wellness/). Presents for medicare annual wellness visit. Patient feels well today. Weight down 15 pounds in thepast year. Not very active around house and no regular exercise. Tries to watch diet and eat healthy. Increased fruits and vegetables. Smaller portions and limits snacking. Tries to limit total dailycalories. Due for labs. Over 10 years since colonoscopy and wants to try cologuard. Checking BP PRNand typically controlled. BP elevated today. Taking medication [...] Cologuard colon cancer screening documented in this encounterExcelsior Springs Medical CenterMoaazcuxid29-93-1724 History of Present illness Narrative* Cruz Garcia MD - 10/22/2023 10:22 AM EDTAssociated Problem(s): DDD (degenerative disc disease), lumbar Pain unchanged but overall feels like tolerable. Use OTC PRN. If worsens can refer to pain management. * Cruz Garcia MD - 10/22/2023 10:22 AM EDTAssociated Problem(s): Benign essential hypertension (CMS/HCC) BP improved but slightly elevated and monitor PRN. Discussed DASH diet. * Cruz Garcia MD - 10/22/2023 9:45 AM EDT Images from the original note were not included. Subjective Patient ID: Mi Sutherland is a 73 y.o. female who presents [...] PRN. Discussed DASH diet. documented in this encounterExcelsior Springs Medical CenterOlkwdzezmd39-05-6504 Evaluation note* Encounter Date Diagnosis Assessment Notes Treatment Notes Treatment Clinical Notes Jan, Thrush (ICD-10 - B37.0) Drink plenty fluids, get plenty of rest. Use the nystatin swish and swallow as prescribed. Run a coolmist humidifier to bedside. Consider using nasal saline rinses 2-3 times a day. Follow-up with your family physician if no improvement in 1 to 2 weeks Jan,Nasal congestion (ICD-10 - R09.81) [facility] Other Evaluation note* Diagnosis Benign essential hypertension (CMS/HCC)- Primary Essential [...] malignant neoplasms, colon documented in this encounter [facility] HealthcareEvaluation note* Diagnosis Benign essential hypertension (CMS/HCC)- Primary Essential hypertension, benign DDD (degenerative disc disease), lumbar Degeneration of lumbar or lumbosacral intervertebral disc documented in this encounter [facility] HealthcareEvaluation note* Diagnosis Benign essential hypertension (CMS/HCC)- Primary Essential [...] specified organisms- Primary documented in this encounter [facility] HealthcareEvaluation note* Diagnosis Benign essential hypertension (CMS/HCC)- Primary Essential [...] (CMS/HCC) Unspecified hypothyroidism documented in this encounter [facility] HealthcareEvaluation note* Diagnosis Onset Date Resolution Status Admit Date Shingles acuteSeptember 2024 10:28am [facility] Work Phone: Evaluation note* Diagnosis Benign essential hypertension- Primary Essential hypertension, benign DDD (degenerative disc disease), lumbar Degeneration of lumbar or lumbosacral intervertebral disc Nonalcoholic fatty liver Obesity (BMI 30-39.9) Benign essential hypertension- Primary Essential hypertension, benign DDD (degenerative disc disease), lumbar Degeneration of lumbar or lumbosacral intervertebral disc Primary hypothyroidism Unspecified hypothyroidism Breast cancer screening by mammogram Benign essential hypertension- Primary Essential hypertension, benign DDD (degenerative disc disease), lumbar Degeneration of lumbar or lumbosacral intervertebral disc Medicare annual wellness visit, subsequent- Primary Primary hypothyroidism Unspecified hypothyroidism Pre-diabetes Other abnormal glucose Class 1 obesity due to excess calories with serious comorbidity and body mass index (BMI) of 30.0 to 30.9 in adult Benign essential hypertension Essential hypertension, benign Encounter for long-term (current) use of medications Encounter for long-term (current) use of other medications Dyslipidemia Other and unspecified hyperlipidemia Colon cancer screening Special screening for malignant neoplasms, colon Benign essential hypertension- Primary Essential hypertension, benign Degeneration of intervertebral disc of lumbar region with discogenic back pain and lower extremity pain Primary hypothyroidism Unspecified hypothyroidism Sensorineural hearing loss (SNHL) of both ears- Primary documented in this encounter [facility] HealthcareEvaluation note* Diagnosis Benign essential hypertension- Primary Essential hypertension, benign DDD (degenerative disc disease), lumbar Degeneration of lumbar or lumbosacral intervertebral disc Nonalcoholic fatty liver Obesity (BMI 30-39.9) Benign essential hypertension- Primary Essential hypertension, benign DDD (degenerative disc disease), lumbar Degeneration of lumbar or lumbosacral intervertebral disc Primary hypothyroidism Unspecified hypothyroidism Breast cancer screening by mammogram Benign essential hypertension- Primary Essential hypertension, benign DDD (degenerative disc disease), lumbar Degeneration of lumbar or lumbosacral intervertebral disc Medicare annual wellness visit, subsequent- Primary Primary hypothyroidism Unspecified hypothyroidism Pre-diabetes Other abnormal glucose Class 1 obesity due to excess calories with serious comorbidity and body mass index (BMI) of 30.0 to 30.9 in adult Benign essential hypertension Essential hypertension, benign Encounter for long-term (current) use of medications Encounter for long-term (current) use of other medications Dyslipidemia Other and unspecified hyperlipidemia Colon cancer screening Special screening for malignant neoplasms, colon Benign essential hypertension- Primary Essential hypertension, benign Degeneration of intervertebral disc of lumbar region with discogenic back pain and lower extremity pain Primary hypothyroidism Unspecified hypothyroidism Sensorineural hearing loss (SNHL) of both ears- Primary documented in this encounter [facility] HealthcareHistory general Narrative - Reported* Type Description Date Medical History HTN (hypertension) Surgical Historymelanoma excisionSurgical HistorycolonoscopySurgical History wisdom teethSurgical Historytubal ligationHospitalization Historysee above [facility] Other Reason for referral (narrative)No reason for referral information availableGrant Hospital Work Phone: Summary Purpose Family History No Family History Records Found Relationship Condition Age at Onset Recorded Date/T jasmyne father Unknown motherDeceasedUnknown Advance Directives No Advanced Directives Records Found Advance Directive Response Recorded Date/ Time Advance Directives No October 10:24am Chief Complaint and Reason for Visit Chief Complaint Admit Date Painful rash on left back and armpit Oct 10:28am Reason for Visit Admit Date Shingles November 10, 2024 10:28am Chief Complaint Admit Date Painful rash on left back and armpit Sep 2024 10:28am [facility] ER f/u chest pain-tests came back ok November 22, 2024 11:25am Additional Source Comments INFORMATION SOURCE (unrecogn ized section and content) DATE CREATED AUTHOR 11/16/2021 [facility] DATE CREATED AUTHOR AUTHOR'S ORGANIZ ATION 12/23/2024 [facility] EPIC REASON FOR VISIT (unrecogniz ed section and content) ReasonCommentsMedicare Annual Wellness Visit SubsequentWellnessReasonComments Follow-up3 mReasonCommentsURIOngoing for 10 daysReasonCommentsFollow-up6m Care Teams (unrecognized sec tion and content) Team MemberRelationshipSpecialtyStart DateEnd Date Cruz Garcia MD [address] [place] [address] PCP - [facility]07/20/23 Cruz Garcia MD [address] [place] [address] PCP - [place]11/17/23Team MemberRelationshipSpecialtyStart DateEnd Date Cruz Garcia MD [address] [place] [address] PCP - [facility]07/20/23 Cruz Garcia MD [address] [place] [address] PCP - [place]11/17/23Team MemberRelationshipSpecialtyStart DateEnd Date Cruz Garcia MD [address] [place] [address] PCP - [facility]07/20/23 Cruz Garcia MD [address] [place] [address] PCP - [place]11/17/23Team MemberRelationshipSpecialtyStart DateEnd Date Cruz Garcia MD [address] [place] [address] PCP - [facility]07/20/23Team MemberRelationshipSpecialtyStart DateEnd Date Cruz Garcia MD [address] [place] [address] PCP - [facility]07/20/23Team MemberRelationshipSpecialtyStart DateEnd Date Cruz Garcia MD [address] [place] [address] PCP - [facility]07/20/23 Cruz Garcia MD [address] [place] [address] PCP - [place]11/17/23Team MemberRelationshipSpecialtyStart DateEnd Date Cruz Garcia MD [address] [place] [address] PCP - [facility]07/20/23 Cruz Garcia MD [address] [place] [address] PCP - [place]11/17/23Team MemberRelationshipSpecialtyStart DateEnd Date Cruz Garcia MD [address] [place] [address] PCP - [facility]07/20/23 Cruz Garcia MD [address] [place] [address] PCP - [place]11/17/23Team MemberRelationshipSpecialtyStart DateEnd Date Cruz Garcia MD [address] [place] [phone] PCP - [facility]07/20/23 Cruz Garcia MD [address] [place] [phone] PCP - [facility]11/17/23 Team Status: Active Member Role Status Dates Cruz Garcia MD Primary Care Provider Active Team Status: Active Member Role Status Dates Cruz Garcia MD Primary Care Provider Active S tart: November 03, 2024 Ty Parr , DOAttending ProviderActiveStart: November 03, 2024 Team Status: Inactive Member Role Status Dates Cruz Garcia MD Primary Care Provider Active S tart: November 10, 2024 End: November 10, 2024Karla Wolfe ProviderActiveStart: November 10, 2024 End: November 10, 2024 Team Status: Inactive Member Role Status Dates Cruz Garcia MD Primary Care Provider Active S tart: November 22, 2024 End: November 22, 2024[facility] HARJIT Garciattluis antonio ProviderActiveStart: November 22, 2024 End: November 22, 2024Team MemberRelationshipSpecialtyStart DateEnd Date rCuz Garcia MD [address] [place] [phone] PCP - [facility]11/17/23 Cruz Garcia MD [address] [place] [phone] PCP - [facility]11/23/24Team MemberRelationshipSpecialtyStart DateEnd Date Cruz Garcia MD [address] [place] [phone] PCP - [facility]11/17/23 Cruz Garcia MD [address] [place] [address] [facility]11/23/24Team MemberRelationshipSpecialtyStart DateEnd Date Cruz Garcia MD PCP - [facility]07/19/2409 Cruz Garcia MD [address] [place] [address] [facility] - [facility]11/17/23 Cruz Garcia MD [address] [place] [address] [facility]11/23/24Team MemberRelationshipSpecialtyStart DateEnd Date Cruz Garcia MD [address] [place] [address] [facility]11/17/23 Cruz Garcia MD [address] [place] [address] [facility]11/23/24 Goals (unrecognized section and content) Goals may be documented in a n alternate section FOR RECORDS PERTAINING TO PATIENTS WHO ARE [...] BE BASED ON THE PRIMARY CLINICAL RECORDS. [employer] [facility]. provides no warranty or guarantee of the accuracy or completeness of information in this document.
[2025-01-02 09:50] LABS: Hematocrit 38.9 % (36.0-48.0); Hemoglobin 12.7 g/dL (12.0-16.0); Immature Granulocytes Abs Auto 0.02 10^3/uL (0.00-0.03); Immature Granulocytes Pct Auto 0.4 % (0.0-0.5); Lymphocytes Absolute Auto 1.2 10^3/uL (1.2-3.8); Mean Corpuscular HGB Conc 32.6 g/dL (29.9-35.2); Mean Corpuscular Hemoglobin 29.4 pg (26.7-34.0); Mean Corpuscular Volume 90.0 fL (81.0-99.0); Platelet Count 230 10^3/uL (150-450); Red Blood Count 4.32 10^6/uL (4.20-5.40); White Blood Count 5.3 10^3/uL (4.0-11.0)
[2025-01-02 10:26] LABS: Alanine Aminotransferase 34 U/L (14-59); Albumin Globulin Ratio 0.7; Albumin Level 3.5 g/dL (3.4-5.0); Alkaline Phosphatase 88 U/L (46-116); Anion Gap 12.5; Aspartate Amino Transferase 24 U/L (15-37); Blood Urea Nitrogen 16.0 mg/dL (7.0-18.0); Calcium 9.2 mg/dL (8.5-10.1); Carbon Dioxide 28.1 mmol/L (21.0-32.0); Chloride 104 mmol/L (98-107); Cholesterol 211 mg/dL (<=200); Estimated GFR (African America >60 (>=60 mL/min/1.73m^2); Estimated GFR (Non-African Ame >60 (>=60 mL/min/1.73m^2); Globulin 5.2 g/dL; Glucose 105 mg/dL (74-106); HDL Cholesterol 52 mg/dL (40-60); Potassium 3.6 mmol/L (3.5-5.1); Sodium 141 mmol/L (136-145); Thyroid Stimulating Hormone 1.563 uIU/mL (0.358-3.740); Total Protein 8.7 g/dL (6.4-8.2); Triglycerides 90 mg/dL (<=150); VLDL CHOLESTEROL 18.0 mg/dL
== END 2025-01-02 09:21 | disposition home or self-care (01) ==
LOC: LAB 09:23
PROVIDERS: PCP Family Medicine; Visit Provider Family Medicine
DX: Z79.899 Other long term (current) drug therapy (principal); E03.9 Hypothyroidism, unspecified; R73.03 Prediabetes; E78.5 Hyperlipidemia, unspecified
CPT/HCPCS: 36415; 80053; 80061; 83036; 84439; 84443; 85025